=== PATIENT | male | born 1930 | race Caucasian/White ===

== ENCOUNTER 2017-06-18 13:16 | Inpatient (IN) | payer MEDICARE ==
[2017-06-18 14:32] LABS: #Eosinphils 0.1 thou/uL (0.0-0.7); #Lymphocytes 2.6 thou/uL (1.20-3.40); #Monocytes 1.4 thou/uL (0.11-0.59); #Neutrophils 7.4 thou/uL (1.40-6.50); %Basophils 0.2 % (0.0-1.0); %Eosinophils 0.6 % (0.0-10.0); %Lymphocytes 22.6 % (21.0-51.0); %Monocytes 11.9 % (0.0-10.0); %Neutrophils 64.7 % (42.0-75.0); Mean Corpuscular HGB CONC 32.5 g/dL (32.0-36.0); Mean Corpuscular Volume 95.2 fl (80.0-94.0); Mean Platelet Volume 6.1 fL (7.4-10.4); Platelet Count 205 thou/uL (130-400); RBC Distribution Width 12.7 % (11.5-14.5); Red Blood Cell (RBC) Count 3.56 mill/uL (4.70-6.10); White Blood Cell (WBC) Count 11.5 thou/uL (4.8-10.8)
[2017-06-18 14:54] LABS: ALT (SGPT) 8 U/L (8-55); AST (SGOT) 12 U/L (5-34); Albumin 3.9 g/dL (3.4-4.8); Alkaline Phosphatase 113 U/L (40-150); Anion Gap 15 mmol/L (10-20); BUN (Urea Nitrogen) 18 mg/dL (8.4-25.7); Bilirubin, Total 0.9 mg/dL (0.2-1.2); CRP (Inflammatory) 3.68 mg/dL (= or < 0.5); Calc. Creatinine Clearance 0 mL/min (70-130); Calcium 9.6 mg/dL (7.8-10.44); Carbon Dioxide 22 mmol/L (23-31); Chloride 102 mmol/L (98-107); Estimated GFR-MDRD 85; Globulin 3.2 g/dL (2.4-3.5); Glucose 96 mg/dL (83-110); Potassium 4.7 mmol/L (3.5-5.1); Protein, Total 7.1 g/dL (5.8-8.1); Sodium 134 mmol/L (136-145)
[2017-06-18 15:13] LABS: INR-International Normal Ratio 1.5; PTT 47.3 SEC (22.9-36.1); Prothrombin Time 18.1 SEC (12.0-14.7)
--- NOTE | 2017-06-18 15:50 | RAD ---
THREE VIEWS RIGHT FOOT: HISTORY: Right foot infection. FINDINGS: AP, lateral, and oblique views of the right foot are obtained. Three views of the right foot demonstrate marked vascular calcifications. No evidence of acute right foot fractures, subluxations, or bony lesions seen. IMPRESSION: Normal three views right foot. POS: BRIAN
[2017-06-18] MEDS ORDERED: Acetaminophen 325 MG TAB PO PRN (17:52)
[2017-06-18] MEDS ORDERED: HYDROcodone/Acetaminophen 5/325 mg Tablet PO PRN (17:52)
[2017-06-18] MEDS ORDERED: Ondansetron HCl/PF 4 MG/2 ML Vial IVP PRN (17:52)
--- NOTE | 2017-06-18 17:52 | PDOC.EVN ---
Event Note - Event Note Event Note: [id number] h&p dictated 1. Rt ischemic foot 2. rt foot cellulitis 3. htn 4. h/o cva 5. h/o afib plan: see orders
[2017-06-18] MEDS ORDERED: cloNIDine 0.1 MG TAB PO PRN (17:56)
[2017-06-18] MEDS ORDERED: Sodium Chloride 0.9% 1,000 ML IV SCH (18:00)
--- NOTE | 2017-06-18 18:52 | CT ---
CONTRAST ENHANCED CTA IMAGES ABDOMEN AND PELVIS AND BILATERAL RUNOFF 06/18/17 HISTORY: Patient with area of tingling and worsening wound right foot. Contrast enhanced CTA images of abdomen, pelvis and runoff was performed and was further evaluated us ing 2D and 3D reconstructed images on an independent 3D workstation. Images demonstrate a small right sided pleural effusion. Some areas of scarring seen in both lung bas es. No evidence of free intraperitoneal air is seen. The liver and spleen are unremarkable. The pancreas is unremarkable. Some areas of hyperdensity seen in the gallbladder compatible with numerous small ga llstones. No evidence of pericholecystic fluid seen. The adrenal glands are unremarkable. Both kidney s demonstrate cortical cysts. Marked atherosclerotic calcifications seen of the abdominal aorta. Bilateral renal artery calcificati ons seen with area of significant caliber reduction in the origin of the right renal artery. This is concerning for severe right renal artery stenosis. There is mild aneurysmal dilatation of the infrarenal abdominal aorta. Diameter maximally measuring u p to 3.0 cm. There appears to be two separate areas of abdominal and aortic aneurysmal dilatation. On e in the proximal inferior renal abdominal aorta and one more distally just above the bifurcation. RIGHT LOWER EXTREMITY: Atherosclerotic plaque seen in the right common iliac artery and right external iliac artery resultin g in approximately 30-60% areas of right common and external iliac artery stenosis. The right common femoral artery is patent. The right superficial femoral artery has extensive areas of plaque along its course resulting in high grade stenosis at the level of the right adductor canal with approximately 70-80% stenosis in this a leo. 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 Diameter measuring up to 8 mm . Extensive atherosclerotic plaque seen in the right anterior tibial artery, right posterior tibial art cristo and right peroneal arteries. Flow appears to be seen in the right foot and the distal right anter ior tibial as well as the right posterior tibial arteries. LEFT LOWER EXTREMITY: Some atherosclerotic plaque seen in the left common iliac artery with plaque extending, but are calci fied, into the left external iliac artery. The left external iliac artery plaque results in approxima tely 30-40% areas of stenosis along the course of the left external iliac. The left common femoral ar ramila contains some plaques but without evidence of significant high grade stenosis. There is extensive atherosclerotic plaque along the entire course of the left superficial femoral art cristo. There appears to be areas of complete occlusion of the left superficial femoral artery with dina nstitution of flow distally via profunda collaterals. Flow is seen in the left popliteal artery. Flow also seen in the left anterior tibial, posterior tibial, and left peroneal arteries, although there is some diffuse calcification seen. IMPRESSION: 1. 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 2. Left superficial femoral artery occlusion with reconstitution. 3. Right renal artery stenosis. 4. 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 POS: BRIAN
--- NOTE | 2017-06-18 19:42 | CON ---
DATE OF CONSULTATION: 06/18/2017 HISTORY OF PRESENT ILLNESS: This is an 87-year-old gentleman referred for ischemic right foot. Acco rding to the patient's and the patient, both of which are rather difficult historians. The jayden ent had what was felt to be an ingrown toenail at home about a month ago and the trimmed his carmen l; however, it progressed to infection and seen by Dr. Lua, who ordered a DLE. This showed multile abiel vascular disease and he was referred here. He was seen in the office today where he had rather a dvanced ischemia of his right foot and brought to the hospital for admission and evaluation. PAST MEDICAL HISTORY: Includes hypertension, chronic atrial fibrillation. 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 SOCIAL HISTORY: The patient smoked a pack of cigarettes a day until 2002 when he stopped. He also d rank a beer on a daily basis; however, has not anything to drink since 02/2017. The patient was hospitalized in 02/2017 for severe anemia at [facility]. His Eliquis was held for about 1 week at that time and then restarted. The patient had upper and lower endoscopy, but the gold s not think anything was found as an etiology. He was started on iron supplement. He then was seen by Dr. Lua at the end of March with repeat laboratory values showing a hemoglobin that had improv ed to about 9-10. I do not know if he was transfused during that hospital stay. MEDICATIONS: Include losartan 100 mg daily, iron once a day, Coreg 6.25 b.i.d., and eyedrops. ALLERGIES: None known. REVIEW OF SYSTEMS: The patient leads a very inactive lifestyle. He evidently had a stroke about 3 o r 4 years ago and has had some balance problems and rarely walks outside of the house. Since his toe has been bothering him, he has developed further weakness and has some difficulty getting out of a c hair. He admits to nocturia x2-3. SOCIAL HISTORY: He is a retired air conditioning repairman. He is and accompanied by his wi fe. PHYSICAL EXAMINATION: GENERAL: Elderly gentleman in no distress. NECK: No carotid bruits. LUNGS: Clear to auscultation. CARDIAC: Irregular rhythm. No murmurs, distant heart sounds. ABDOMEN: Soft, nontender, healed skin incision from the umbilical hernia repair. No aneurysm. EXTREMITIES: He has palpable femoral pulses bilaterally. No distal pulses. He has a Doppler signal in both feet that is monophasic to biphasic. He has extensive ischemic changes with erythema and so me purple discoloration most of the dorsum of his right foot. He has some small areas of eschar on t he dorsum of three toes; however, the tips of his toes appear pink. He has no peripheral edema. He is tender to palpation of his right foot. At this time, I have reviewed a foot x-rays showing heavily calcified tibial vessels. His CT angiogr am shows extensive calcification of the aorta in all segments distally with probable occlusion of the right SFA in several areas. His right external iliac artery may have some significant stenosis as w ell. Tibial vessels are diffusely diseased and it is difficult to quantitate the severity based on t he CTA. Plan at this time is for angiography tomorrow morning and possibly a fem-pop bypass, fawad gamble on the findings. I have also discussed the possibility of stenting with the family. I think ther e is a significant likelihood that he will lose his lower leg. However, we will see if there is anyt dora we can do to improve the circulatory status.
[2017-06-18] MEDS ORDERED: Heparin 5,000 UNITS/ML VIAL SC SCH (21:00)
[2017-06-18] MEDS: Clindamycin/D5W 600 MG in Premix Bag 1 BAG IVPB SCH (21:21)
[2017-06-18] MEDS: Cefepime 2 GM, Syringe 2.5 ML in Sodium Chloride 0.9% 10 ML SLOW IVP SCH (22:04)
[2017-06-18] MEDS: hydrALAZINE 20 MG/ML VIAL SLOW IVP PRN (22:05)
[2017-06-18] MEDS: Lactated Ringer's 1,000 ML IV SCH (22:05)
[2017-06-19] MEDS: hydrALAZINE 20 MG/ML VIAL SLOW IVP PRN (03:42)
[2017-06-19 05:12] LABS: #Eosinphils 0.1 thou/uL (0.0-0.7); #Lymphocytes 1.7 thou/uL (1.20-3.40); #Neutrophils 5.1 thou/uL (1.40-6.50); %Basophils 0.3 % (0.0-1.0); %Eosinophils 0.9 % (0.0-10.0); %Lymphocytes 22.1 % (21.0-51.0); %Monocytes 12.2 % (0.0-10.0); %Neutrophils 64.6 % (42.0-75.0); Hemoglobin 10.1 g/dL (14.0-18.0); Mean Corpuscular Volume 93.9 fl (80.0-94.0); Mean Platelet Volume 5.8 fL (7.4-10.4); Platelet Count 199 thou/uL (130-400); RBC Distribution Width 12.7 % (11.5-14.5); Red Blood Cell (RBC) Count 3.26 mill/uL (4.70-6.10); White Blood Cell (WBC) Count 7.9 thou/uL (4.8-10.8)
[2017-06-19 05:26] LABS: Anion Gap 13 mmol/L (10-20); BUN (Urea Nitrogen) 18 mg/dL (8.4-25.7); Calc. Creatinine Clearance 85 mL/min (70-130); Calcium 9.1 mg/dL (7.8-10.44); Carbon Dioxide 22 mmol/L (23-31); Chloride 103 mmol/L (98-107); Estimated GFR-MDRD Greater than 90; Glucose 97 mg/dL (83-110); Potassium 4.1 mmol/L (3.5-5.1); Sodium 134 mmol/L (136-145)
[2017-06-19] MEDS: Carvedilol 6.25 MG TAB PO SCH ×2 (06:26→16:04)
[2017-06-19] MEDS: Clindamycin/D5W 600 MG in Premix Bag 1 BAG IVPB SCH ×3 (06:26→22:08)
[2017-06-19] MEDS ORDERED: Ondansetron HCl/PF 4 MG/2 ML Vial ONE (06:53)
[2017-06-19] MEDS ORDERED: PHENYLEPHRINE-NS 100 MCG/ML 10 ML SYRINGE ONE (06:53)
[2017-06-19] MEDS ORDERED: PROPOFOL 200 MG/20 ML VIAL ONE (06:53)
[2017-06-19] MEDS ORDERED: Lidocaine 1% PF 5 ML VIAL ONE (06:53)
[2017-06-19] MEDS ORDERED: Heparin 10,000 UNITS/ 10 ML VIAL ONE (06:53)
[2017-06-19] MEDS ORDERED: Dexamethasone 20 MG/5 ML VIAL ONE (06:53)
[2017-06-19] MEDS ORDERED: Lidocaine 1% (PF) 30 ML VIAL ONE (08:02)
--- NOTE | 2017-06-19 08:16 | HP ---
DATE OF ADMISSION: 06/18/2017 CHIEF COMPLAINT: Right foot discoloration. HISTORY OF PRESENT ILLNESS: The patient is an 87-year-old male with started having right foot discoloration approximately 2-3 weeks back since then it slowly got worse. He started noticing more blackish discoloration of the right second and third toe for the last 2-3 days. The patient was complaining of pain. Pain is numbness and tingling kind of pain, intermittent. No aggravating or alleviating factors. Symptoms persisted, so he went to the PCP, who recommended for the patient would seen by Dr. Wilson and the patient was referred from Dr. Wilson's office to the hospital. The patient denies any fever , denies any chills, denies nausea, denies any vomiting, denies any chest pain, denies any trouble breathing, denies any dizziness, denies any trauma Complains of some drainage from the right foot also. PAST MEDICAL HISTORY: Hypertension, atrial fibrillation, CVA. PAST SURGICAL HISTORY: Umbilical hernia repair, right knee arthroscopy. SOCIAL HISTORY: Denies smoking, denies alcohol, denies any drugs. FAMILY HISTORY: Denies any heart problems. MEDICATIONS: Reviewed. ALLERGIES: Reviewed. REVIEW OF SYSTEMS: Constitutional: Denies any fever, denies any chills. Eyes : Denies vision problems. Ears: Denies hearing loss. Neck: Denies any neck pain. Cardiovascular system: Denies any chest pains or palpitations. Respiratory system: Denies any cough, denies sputum production. Gastrointestinal: No nausea, vomiting. Musculoskeletal: Right foot positive for erythema. Right second and third toe ulcer open. Skin breakdown present. Positive for ulcer. Positive for drainage. Psychiatric: Denies anxiety. Cranial nerve system: Denies syncope. Denies lightheadedness. All other review of systems are reviewed and are negative. PHYSICAL EXAMINATION: CONSTITUTIONAL/VITAL SIGNS: At the time of H&P performed, blood pressure is 180 /80, pulse ox 97%, respiratory 18. GENERAL: The patient appears comfortable. HEENT: Anterior nares patent. Teeth intact. Tongue is moist. NECK: Supple, no JVD. CARDIAC: S1, S2 present. Regular rate and rhythm. No murmurs, no rubs, no gallops. RESPIRATORY SYSTEM: No wheezing, no rhonchi. Breath sounds bilaterally. GASTROINTESTINAL: Abdomen soft, nontender, no guarding, no rebound, no masses felt. MUSCULOSKELETAL: Positive for right foot erythema present, right second and third toe black discoloration, black eschar present, black and skin breakdown present. Positive for drainage. Right great toe positive for blister present. PSYCHIATRIC: Mood appropriate at this time. CRANIAL NERVES SYSTEM: Cranial nerves intact. Follows commands. Strength intact. Sensory intact. LABORATORY DATA: At the time of H&P performed, PT 18.1, INR 1.5. White count 11.5, hemoglobin 11, platelet count is 205. ASSESSMENT AND PLAN: The patient is an 87-year-old male, 1. Right foot ulcer and cellulitis plus rule out ischemic limb. The patient did have Doppler pedal pulse in the ER. The patient already had aortogram with bilateral runoff in the ER. We are waiting for the official report. ED physician did speak to Dr. Wilson and recommended no anticoagulation at this time. The patient took Eliquis this morning. I will go ahead and monitor patient closely. We go head and start the patient on IV antibiotics and we will wait for Dr. Wilson's input. 2. Pain, p.r.n. pain medication. 3. Hypertension. Monitor blood pressure. Continue BP meds. 4. History of atrial fibrillation, monitor heart rate. Place the patient on telemetry. 5. History of cerebrovascular accident, stable at this time. The case was discussed in detail with the patient and patient's also. The patient is FULL CODE. MTDD
[2017-06-19] MEDS ORDERED: Enoxaparin Sodium 40 MG/0.4 ML SYRINGE SC SCH (09:00)
[2017-06-19] MEDS ORDERED: Heparin 10,000 UNITS/1 ML VIAL ONE (09:51)
[2017-06-19] MEDS: Lactated Ringer's 1,000 ML IV SCH ×3 (10:10→16:02)
[2017-06-19] MEDS: Losartan 25 MG TAB PO SCH (10:10)
[2017-06-19] MEDS: Cefepime 2 GM, Syringe 2.5 ML in Sodium Chloride 0.9% 10 ML SLOW IVP SCH ×2 (10:10→21:08)
[2017-06-19] MEDS ORDERED: Fentanyl 250 MCG/5 ML VIAL ONE (10:14)
--- NOTE | 2017-06-19 10:57 | OP ---
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 PROCEDURE: Abdominal aortography and right lower extremity runoff with stenting of the right externa l iliac artery using an 8 x 40 self-expanding stent posted with a 7 mm balloon. PROCEDURE IN DETAIL: After prepping and draping, ultrasound guided puncture of the left common femor al artery was carried out. Wire was then passed and a 5 Georg[place] dilator and sheath inserted. A Contr a catheter was advanced over the wire following which angiography was obtained of the aorta in the il iofemoral vessels. Contra catheter was then used to direct the wire over the bifurcation; however, i t was unable to negotiate the proximal external iliac artery on the right, despite multiple wires and catheter position in the common iliac artery. Runoff the right leg was then obtained. Following th is, the right common femoral artery was punctured after lidocaine anesthesia in this region and a wir e was then manipulated through the external iliac artery into the aorta. Following this, an 8 x 40, Innova stent was deployed and ballooned x2 with a 7 x 40 [place] balloon. Completion angiography emily wed good result. FINDINGS: The patient had heavily calcified aorta with some mild aneurysmal changes distally. Both iliac systems were heavily calcified and the right external iliac artery had about an 80% stenosis at its origin. The common femoral artery was heavily calcified with moderate disease and then there wa s some stenosis at the takeoff of the right profunda femoral artery. The right superficial femoral a rtery was severely and diffusely diseased with multiple subtotal lesions in its mid and distal extent . Popliteal artery was patent and gave off an anterior tibial and tibioperoneal trunk; however, thes e vessels only visualized for a short distance and then no visualization was seen distally. The exte rnal iliac artery stenosis was reduced to 0% stenosis at the completion of the procedure with mild to moderate lesions distally in the external iliac artery. CONTRAST: 63 mL. FLUOROSCOPY: 22.1 minutes.
[2017-06-19] MEDS ORDERED: Heparin 5,000 UNITS/ML VIAL ONE (11:09)
[2017-06-19] MEDS ORDERED: Protamine Sulfate 50 MG/5 ML VIAL ONE ×2 (11:09→13:04)
[2017-06-19] MEDS ORDERED: Sodium Bicarbonate 2.5 MEQ/5 ML VIAL ONE (12:51)
[2017-06-19] MEDS ORDERED: Sodium Bicarb 50 MEQ/50 ML Abboject 8.4% SYRINGE ONE (12:53)
[2017-06-19] MEDS ORDERED: Promethazine HCl 25 MG/ML VIAL SLOW IVP PRN (13:10)
[2017-06-19] MEDS ORDERED: Promethazine HCl 25 MG/ML VIAL IM PRN (13:10)
[2017-06-19] MEDS ORDERED: Morphine Sulfate 2 MG/ML SYRINGE SLOW IVP PRN (13:10)
[2017-06-19] MEDS ORDERED: Ondansetron HCl/PF 4 MG/2 ML Vial IVP PRN (13:10)
--- NOTE | 2017-06-19 14:03 | PDOC.PN ---
- Subjective Encounter Start Date: 06/19/17 Encounter Start Time: 18:00 Subjective: is post op fempop right -: not in distress - Objective MAR Reviewed: Yes Vital Signs & Weight: Vital Signs (12 hours) Temp Pulse Resp BP BP Pulse Ox 06/19/17 07:20 98.4 F 67 18 176/72 H 96 06/19/17 07:15 98.4 F 67 18 96 06/19/17 06:26 192/79 H 06/19/17 04:15 173/85 H 06/19/17 03:42 72 204/85 H 06/19/17 03:30 98.2 F 72 16 203/93 H 97 Weight Weight 182 lb 9 oz I&O: 06/18/17 06/19/17 06/20/17 06:59 06:59 06:59 Intake Total 800 Output Total 475 Balance 325 Result Diagrams: 06/20/17 03:56 06/20/17 03:56 Additional Labs: Accuchecks 06/19/17 13:36 POC Glucose 105 Phys Exam - Physical Examination HEENT: PERRLA, moist MMs Neck: no JVD, supple Respiratory: no wheezing, no rales Cardiovascular: RRR, no significant murmur Gastrointestinal: soft, non-tender, positive bowel sounds right 2, 3 toes has ischemia/gangrene, ulcers+ Neurological: non-focal, moves all 4 limbs Psychiatric: normal affect, A&O x 3 Dx/Plan (1) Ischemic ulcer of right foot Code(s): L97.519 - NON-PRS CHRONIC ULCER OTH PRT RIGHT FOOT W UNSP SEVERITY Status: Acute (2) PVD (peripheral vascular disease) Code(s): I73.9 - PERIPHERAL VASCULAR DISEASE, UNSPECIFIED Status: Acute Comment: s/p stent to right ext iliac art and fem pop 06/19/2017 (3) HTN (hypertension) Code(s): I10 - ESSENTIAL (PRIMARY) HYPERTENSION Status: Chronic Qualifiers: Hypertension type: essential hypertension Qualified Code(s): I10 - Essential (primary) hypertension (4) Renal artery stenosis Code(s): I70.1 - ATHEROSCLEROSIS OF RENAL ARTERY Status: Acute (5) Chronic anemia Code(s): D64.9 - ANEMIA, UNSPECIFIED Status: Chronic (6) CAD (coronary artery disease) Code(s): I25.10 - ATHSCL HEART DISEASE OF [place] CORONARY ARTERY W/O ANG PCTRS Status: Suspected Qualifiers: Coronary Disease-Associated Artery/Lesion type: [place] artery [place] vs. transplanted heart: [place] heart Associated angina: without angina Qualified Code(s): I25.10 - Atherosclerotic heart disease of [place] coronary artery without angina pectoris - Plan had aortogram with run offs with stent placed to right ext iliac art -: and fempop on right, is on asp, coreg, cozaar -: will add plavix if ok with CTS -: cefepime and clinda, may dc if ok with CTS -: will f/u * . Review of Systems - Medications/Allergies Allergies/Adverse Reactions: Allergies Allergy/AdvReac Type Severity Reaction Status Date / Time No Known Drug Allergies Allergy Verified 06/18/17 23:59 Medications: Current Medications Acetaminophen (Tylenol) 650 mg PO Q4H PRN PRN Reason: Headache/Fever or Pain Hydrocodone Bitart/Acetaminophen ([place] 5/325) 1 tab PO Q4H PRN PRN Reason: Moderate Pain (4-6) Aspirin (Aspirin Chewable) 81 mg PO DAILY COUNTS INCLUDE 234 BEDS AT THE [facility] Last Admin: 06/19/17 10:10 Dose: Not Given Carvedilol (Coreg) 6.25 mg PO BID-WM COUNTS INCLUDE 234 BEDS AT THE [facility] Last Admin: 06/19/17 06:26 Dose: 6.25 mg Clonidine (Catapres) 0.1 mg PO Q6H PRN PRN Reason: SBP GREATER THAN 160 Fentanyl (Pacu-Sublimaze) 50 mcg SLOW IVP Q10MIN PRN PRN Reason: Moderate to Severe Pain (6-10) Stop: 06/19/17 16:10 Hydralazine HCl (Apresoline) 10 mg SLOW IVP Q4H PRN PRN Reason: SBP Greater Than 170 Last Admin: 06/19/17 03:42 Dose: 10 mg Cefepime HCl 2 gm/ Syringe 2.5 (ml/ Sodium Chloride) 12.5 mls @ 150 mls/hr SLOW IVP Q12HR COUNTS INCLUDE 234 BEDS AT THE [facility] Last Admin: 06/19/17 10:10 Dose: Not Given Clindamycin Phosphate/Dextrose (600 mg/ Device) 50 mls @ 100 mls/hr IVPB Q8HR COUNTS INCLUDE 234 BEDS AT THE [facility] Last Admin: 06/19/17 06:26 Dose: 50 mls Lactated Ringer's (Lactated Ringer's) 1,000 mls @ 100 mls/hr IV .Q10H COUNTS INCLUDE 234 BEDS AT THE [facility] Last Admin: 06/19/17 10:10 Dose: Not Given Losartan Potassium (Cozaar) 100 mg PO DAILY COUNTS INCLUDE 234 BEDS AT THE [facility] Last Admin: 06/19/17 10:10 Dose: Not Given Morphine Sulfate (Pacu-Morphine Sulfate) 2 mg SLOW IVP Q10MIN PRN PRN Reason: Moderate to Severe Pain (6-10) Stop: 06/19/17 16:10 Ondansetron HCl (Zofran) 4 mg IVP Q6H PRN PRN Reason: Nausea/Vomiting Ondansetron HCl (Pacu-Zofran) 4 mg IVP ONE PRN PRN Reason: Nausea/Vomiting Stop: 06/19/17 16:10 Promethazine HCl (Pacu-Phenergan) 6.25 mg SLOW IVP ONE PRN PRN Reason: Nausea/Vomiting Stop: 06/19/17 16:10 Promethazine HCl (Pacu-Phenergan) 6.25 mg IM ONE PRN PRN Reason: Nausea/Vomiting Stop: 06/19/17 16:10 Sodium Chloride (Flush - Normal Saline) 10 ml IVF Q12HR COUNTS INCLUDE 234 BEDS AT THE [facility] Last Admin: 06/19/17 10:10 Dose: Not Given Sodium Chloride (Flush - Normal Saline) 10 ml IVF PRN PRN PRN Reason: Saline Flush
--- NOTE | 2017-06-19 14:17 | PQF ---
CLINICAL DOCUMENTATION IMPROVEMENT CLARIFICATION FORM: ICD-10 Updated PLEASE DO AN ADDENDUM TO THE PROGRESS NOTE WITH ANY DOCUMENTATION UPDATES OR ADDITIONS AND CARRY THROUGH TO DC SUMMARY. THANK YOU. DATE: 06/19/17 ATTN: Dr. Wilson Please exercise your independent, professional judgment in responding to the clarification form. Clinical indicators are provided on the bottom of this form for your review Please check appropriate box(s): [ ] Drug-eluting stent. [ ] Non-drug eluting stent (e.g., bare metal, drug-coated) [ ] Other diagnosis [ ] Unable to determine For continuity of documentation, please document condition throughout progress notes and discharge summary. Thank You. CLINICAL INDICATORS - SIGNS / SYMPTOMS / LABS OP REPORT: 06/19 ABDOMINAL AORTOGRAPHY & R LE RUNOFF WITH STENTING OF THE R EXTERNAL ILIAC ARTERY USING AN 8 X40 SELF- EXPANDING STENT POSTED WITH A 7mm BALLOON. ...FOLLOWING THIS, AN 8 X 40, INNOVA STENT WAS DEPLOYED... RISKS: OP REPORT: 06/19 SEVERE PERIPHERAL ARTERY DISEASE WITH GANGRENE OF THE RIGHT FOOT. TREATMENT: OP REPORT: 06/19 ABDOMINAL AORTOGRAPHY & R LE RUNOFF WITH STENTING OF THE R EXTERNAL ILIAC ARTERY USING AN 8 X40 SELF- EXPANDING STENT POSTED WITH A 7mm BALLOON. (AN 8 X 40 INNOVA STENT WAS DEPLOYED) Thank you, Codie (This form is maintained as a part of the permanent medical record) 2015 [employer], [place]. All Rights Reserved Codie Arriaza RN, BSN [email or web address] Office: [phone] [facility]OSPITALIrsael
[2017-06-19] MEDS ORDERED: Fentanyl 100 MCG/2 ML VIAL ONE (15:04)
[2017-06-19] MEDS ORDERED: Iopamidol 370 76% 50 ML VIAL FS ONE (15:51)
[2017-06-19 16:05] LABS: #Lymphocytes 1.3 thou/uL (1.20-3.40); #Neutrophils 9.8 thou/uL (1.40-6.50); %Basophils 0.3 % (0.0-1.0); %Eosinophils 0.3 % (0.0-10.0); %Lymphocytes 10.7 % (21.0-51.0); %Monocytes 8.1 % (0.0-10.0); %Neutrophils 80.6 % (42.0-75.0); Hemoglobin 10.6 g/dL (14.0-18.0); Mean Corpuscular HGB CONC 32.5 g/dL (32.0-36.0); Mean Corpuscular Hemoglobin 31.1 pg (27.0-31.0); Mean Corpuscular Volume 95.7 fl (80.0-94.0); Mean Platelet Volume 6.2 fL (7.4-10.4); Platelet Count 184 thou/uL (130-400); RBC Distribution Width 12.8 % (11.5-14.5); Red Blood Cell (RBC) Count 3.41 mill/uL (4.70-6.10); White Blood Cell (WBC) Count 12.2 thou/uL (4.8-10.8)
[2017-06-19 16:23] LABS: Anion Gap 13 mmol/L (10-20); BUN (Urea Nitrogen) 16 mg/dL (8.4-25.7); Calc. Creatinine Clearance 87 mL/min (70-130); Calcium 8.4 mg/dL (7.8-10.44); Carbon Dioxide 22 mmol/L (23-31); Chloride 105 mmol/L (98-107); Estimated GFR-MDRD Greater than 90; Glucose 102 mg/dL (83-110); Potassium 4.1 mmol/L (3.5-5.1); Sodium 136 mmol/L (136-145)
--- NOTE | 2017-06-19 16:44 | OP ---
PREOPERATIVE DIAGNOSIS: Ischemic right foot. POSTOPERATIVE DIAGNOSIS: Ischemic right foot. PROCEDURE: Right femoral to popliteal artery bypass with nonreversed saphenous vein. SURGEON: Hank Wilson M.D. ANESTHESIA: General. ESTIMATED BLOOD LOSS: 300 mL. PROCEDURE IN DETAIL: After adequate anesthesia had been obtained, the patient was prepped and draped . Incision was made in the right groin across an area where a femoral artery catheter had been place d. After the femoral artery was identified, a 6-0 Prolene suture was used to repair the puncture sit e as the catheter was removed. Following this, saphenous vein was harvested from the upper third of the calf, all the way up to the groin. EVH was considered; however, the vessel was very superficial with multiple small tributaries. For this reason, several incisions were used to harvest the vein. Following this, it was injected with heparin saline and branches tied. The popliteal artery as well as tibioperoneal and anterior tibial trunks were isolated in the upper calf through a medial incision . After heparinization, clamps were applied to the heavily calcified femoral artery in the SFA and p rofunda both of which were heavily diseased. The distal external iliac artery was clamped and then a n arteriotomy performed, and distally and the common femoral artery and the saphenous vein anastomose d in an end-to-side fashion. Clamps were then removed and repair sutures were utilized on the vein g raft. There was some bleeding from the proximal clamp site and this was controlled with Surgicel and pressure. There was a good pulse in the graft and was then brought through its previous tunnel exce pt just above the knee. It was transferred posterior to the knee where the distal anastomosis was co mpleted to the calcified, but patent popliteal artery. Following completion of this, there was a goo d pulse in the tibioperoneal trunk. The wounds were then closed in layers and the patient is to be t aken to the ICU in guarded condition.
[2017-06-19] MEDS ORDERED: Morphine 4 MG/ML VIAL SLOW IVP PRN (17:12)
[2017-06-19] MEDS: Morphine 4 MG/ML VIAL SLOW IVP PRN ×2 (17:15→23:51)
[2017-06-20] MEDS: Lactated Ringer's 1,000 ML IV SCH (03:59)
[2017-06-20 04:42] LABS: Anion Gap 12 mmol/L (10-20); BUN (Urea Nitrogen) 22 mg/dL (8.4-25.7); Calc. Creatinine Clearance 71 mL/min (70-130); Calcium 8.2 mg/dL (7.8-10.44); Carbon Dioxide 23 mmol/L (23-31); Chloride 107 mmol/L (98-107); Estimated GFR-MDRD 83; Glucose 102 mg/dL (83-110); Potassium 4.5 mmol/L (3.5-5.1); Sodium 137 mmol/L (136-145)
[2017-06-20 04:50] LABS: #Lymphocytes 1.4 thou/uL (1.20-3.40); #Monocytes 1.4 thou/uL (0.11-0.59); #Neutrophils 9.4 thou/uL (1.40-6.50); %Basophils 0.1 % (0.0-1.0); %Eosinophils 0.1 % (0.0-10.0); %Lymphocytes 11.5 % (21.0-51.0); %Monocytes 11.4 % (0.0-10.0); %Neutrophils 76.9 % (42.0-75.0); Hemoglobin 9.6 g/dL (14.0-18.0); Mean Corpuscular HGB CONC 34.2 g/dL (32.0-36.0); Mean Corpuscular Volume 93.7 fl (80.0-94.0); Mean Platelet Volume 6.2 fL (7.4-10.4); Platelet Count 179 thou/uL (130-400); RBC Distribution Width 12.8 % (11.5-14.5); Red Blood Cell (RBC) Count 2.99 mill/uL (4.70-6.10); White Blood Cell (WBC) Count 12.3 thou/uL (4.8-10.8)
[2017-06-20] MEDS: Clindamycin/D5W 600 MG in Premix Bag 1 BAG IVPB SCH (05:22)
[2017-06-20] MEDS: Losartan 25 MG TAB PO SCH (08:29)
[2017-06-20] MEDS: Carvedilol 6.25 MG TAB PO SCH ×2 (08:29→17:18)
--- NOTE | 2017-06-20 15:06 | PDOC.PN ---
- Subjective Encounter Start Date: 06/20/17 Encounter Start Time: 08:30 Subjective: awake, at bedside -: no pain, is able to move LE - Objective MAR Reviewed: Yes Vital Signs & Weight: Vital Signs (12 hours) Temp BP 06/20/17 12:00 97.9 F 06/20/17 08:29 133/51 L 06/20/17 08:00 99.1 F 06/20/17 04:00 98.4 F Weight Weight 182 lb 9 oz Most Recent Monitor Data Heart Rate from ECG 57 NIBP 122/43 NIBP BP-Mean 56 Respiration from ECG 14 SpO2 100 I&O: 06/19/17 06/20/17 06/21/17 06:59 06:59 06:59 Intake Total 800 1899 300 Output Total 475 475 165 Balance 325 1424 135 Result Diagrams: 06/20/17 03:56 06/20/17 03:56 Phys Exam - Physical Examination HEENT: PERRLA, moist MMs Neck: no JVD, supple Respiratory: no wheezing, no rales Cardiovascular: RRR, no significant murmur Gastrointestinal: soft, non-tender, positive bowel sounds has gangrene of right 3,4 toes, pulses are dopplerable Neurological: non-focal, moves all 4 limbs Psychiatric: A&O x 3 Dx/Plan (1) Ischemic ulcer of right foot Code(s): L97.519 - NON-PRS CHRONIC ULCER OTH PRT RIGHT FOOT W UNSP SEVERITY Status: Acute (2) PVD (peripheral vascular disease) Code(s): I73.9 - PERIPHERAL VASCULAR DISEASE, UNSPECIFIED Status: Acute Comment: s/p stent to right ext iliac art and fem pop 06/19/2017 (3) HTN (hypertension) Code(s): I10 - ESSENTIAL (PRIMARY) HYPERTENSION Status: Chronic Qualifiers: Hypertension type: essential hypertension Qualified Code(s): I10 - Essential (primary) hypertension (4) Renal artery stenosis Code(s): I70.1 - ATHEROSCLEROSIS OF RENAL ARTERY Status: Acute (5) Chronic anemia Code(s): D64.9 - ANEMIA, UNSPECIFIED Status: Chronic (6) CAD (coronary artery disease) Code(s): I25.10 - ATHSCL HEART DISEASE OF [place] CORONARY ARTERY W/O ANG PCTRS Status: Suspected Qualifiers: Coronary Disease-Associated Artery/Lesion type: [place] artery [place] vs. transplanted heart: [place] heart Associated angina: without angina Qualified Code(s): I25.10 - Atherosclerotic heart disease of [place] coronary artery without angina pectoris - Plan is on asp, coreg, cozaar -: on cefepime and clindamycin -: may antibiotics if ok with CTS -: PT to mobilize as tolerated -: may tx to tele * . Review of Systems - Medications/Allergies Allergies/Adverse Reactions: Allergies Allergy/AdvReac Type Severity Reaction Status Date / Time No Known Drug Allergies Allergy Verified 06/18/17 23:59 Medications: Current Medications Acetaminophen (Tylenol) 650 mg PO Q4H PRN PRN Reason: Headache/Fever or Pain Hydrocodone Bitart/Acetaminophen ([place] 5/325) 1 tab PO Q4H PRN PRN Reason: Moderate Pain (4-6) Aspirin (Aspirin Chewable) 81 mg PO DAILY ON [facility] OF [facility] Last Admin: 06/20/17 08:29 Dose: 81 mg Carvedilol (Coreg) 6.25 mg PO BID-[facility] Last Admin: 06/20/17 08:29 Dose: 6.25 mg Clonidine (Catapres) 0.1 mg PO Q6H PRN PRN Reason: SBP GREATER THAN 160 Hydralazine HCl (Apresoline) 10 mg SLOW IVP Q4H PRN PRN Reason: SBP Greater Than 170 Last Admin: 06/19/17 03:42 Dose: 10 mg Losartan Potassium (Cozaar) 100 mg PO DAILY ON LICENSE OF [facility] Last Admin: 06/20/17 08:29 Dose: 100 mg Morphine Sulfate (Morphine) 2 mg SLOW IVP Q6H PRN PRN Reason: Mild Pain (1-3) Morphine Sulfate (Morphine) 4 mg SLOW IVP Q6H PRN PRN Reason: Moderate Pain (4-6) Last Admin: 06/19/17 23:51 Dose: 4 mg Ondansetron HCl (Zofran) 4 mg IVP Q6H PRN PRN Reason: Nausea/Vomiting Sodium Chloride (Flush - Normal Saline) 10 ml IVF PRN PRN PRN Reason: Saline Flush
[2017-06-20] MEDS: Cefepime 2 GM, Syringe 2.5 ML in Sodium Chloride 0.9% 10 ML SLOW IVP SCH (17:17)
[2017-06-20 18:06] VITALS: BMI 25.9
[2017-06-21] MEDS: Carvedilol 3.125 MG TAB PO SCH ×2 (08:43→17:05)
[2017-06-21] MEDS: Losartan 25 MG TAB PO SCH (08:44)
[2017-06-21] MEDS: Bisacodyl 5 MG TAB PO PRN (08:45)
--- NOTE | 2017-06-21 11:41 | PDOC.PN ---
- Subjective Encounter Start Date: 06/21/17 Encounter Start Time: 08:30 Subjective: no trouble breathing -: has no pain in right toes/leg -: moves all extr freely - Objective MAR Reviewed: Yes Vital Signs & Weight: Vital Signs (12 hours) Temp Pulse Resp BP Pulse Ox 06/21/17 08:00 98.6 F 68 18 94 L 06/21/17 07:45 98.6 F 68 18 144/68 H 94 L 06/21/17 07:44 98.6 F 06/21/17 03:34 98.4 F 75 18 122/59 L 98 06/21/17 00:02 97.5 F L 74 16 126/61 97 Weight Weight 191 lb 4 oz Most Recent Monitor Data Heart Rate from ECG 46 NIBP 117/37 NIBP BP-Mean 86 Respiration from ECG 17 SpO2 99 I&O: 06/20/17 06/21/17 06/22/17 06:59 06:59 06:59 Intake Total 1899 400 Output Total 475 620 Balance 1424 -220 Result Diagrams: 06/20/17 03:56 06/20/17 03:56 Phys Exam - Physical Examination HEENT: PERRLA, moist MMs Neck: no JVD, supple Respiratory: no wheezing, no rales Cardiovascular: RRR, no significant murmur Gastrointestinal: soft, non-tender, positive bowel sounds right DP/PT is dopplerable per staff, has gangrene of right 3,4 toes Neurological: non-focal, moves all 4 limbs Psychiatric: A&O x 3 Dx/Plan (1) Ischemic ulcer of right foot Code(s): L97.519 - NON-PRS CHRONIC ULCER OTH PRT RIGHT FOOT W UNSP SEVERITY Status: Acute Comment: with gangrene of right 3,4 toes and edema (2) PVD (peripheral vascular disease) Code(s): I73.9 - PERIPHERAL VASCULAR DISEASE, UNSPECIFIED Status: Acute Comment: s/p stent to right ext iliac art and FEMPOP 06/19/2017 (3) HTN (hypertension) Code(s): I10 - ESSENTIAL (PRIMARY) HYPERTENSION Status: Chronic Qualifiers: Hypertension type: essential hypertension Qualified Code(s): I10 - Essential (primary) hypertension (4) Renal artery stenosis Code(s): I70.1 - ATHEROSCLEROSIS OF RENAL ARTERY Status: Acute (5) Chronic anemia Code(s): D64.9 - ANEMIA, UNSPECIFIED Status: Chronic (6) CAD (coronary artery disease) Code(s): I25.10 - ATHSCL HEART DISEASE OF [place] CORONARY ARTERY W/O ANG PCTRS Status: Suspected Qualifiers: Coronary Disease-Associated Artery/Lesion type: [place] artery [place] vs. transplanted heart: [place] heart Associated angina: without angina Qualified Code(s): I25.10 - Atherosclerotic heart disease of [place] coronary artery without angina pectoris - Plan is on asp, coreg and cozaar -: is off antibiotics, wound care for toes (dry gangrene with edema around) -: reduce coreg dose (pulse drop to 40's) -: PT to mobilize as tolerated -: likely might need rehab * . Review of Systems - Medications/Allergies Allergies/Adverse Reactions: Allergies Allergy/AdvReac Type Severity Reaction Status Date / Time No Known Drug Allergies Allergy Verified 06/18/17 23:59 Medications: Current Medications Acetaminophen (Tylenol) 650 mg PO Q4H PRN PRN Reason: Headache/Fever or Pain Hydrocodone Bitart/Acetaminophen ([place] 5/325) 1 tab PO Q4H PRN PRN Reason: Moderate Pain (4-6) Last Admin: 06/20/17 20:01 Dose: 1 tab Aspirin (Aspirin Chewable) 81 mg PO DAILY [facility] Last Admin: 06/21/17 08:43 Dose: 81 mg Bisacodyl (Dulcolax) 10 mg PO DAILYPRN PRN PRN Reason: Constipation Last Admin: 06/21/17 08:45 Dose: 10 mg Carvedilol (Coreg) 3.125 mg PO BID-[facility] Last Admin: 06/21/17 08:43 Dose: 3.125 mg Clonidine (Catapres) 0.1 mg PO Q6H PRN PRN Reason: SBP GREATER THAN 160 Hydralazine HCl (Apresoline) 10 mg SLOW IVP Q4H PRN PRN Reason: SBP Greater Than 170 Last Admin: 06/19/17 03:42 Dose: 10 mg Losartan Potassium (Cozaar) 100 mg PO DAILY [facility] Last Admin: 06/21/17 08:44 Dose: 100 mg Morphine Sulfate (Morphine) 2 mg SLOW IVP Q6H PRN PRN Reason: Mild Pain (1-3) Morphine Sulfate (Morphine) 4 mg SLOW IVP Q6H PRN PRN Reason: Moderate Pain (4-6) Last Admin: 06/19/17 23:51 Dose: 4 mg Ondansetron HCl (Zofran) 4 mg IVP Q6H PRN PRN Reason: Nausea/Vomiting Sodium Chloride (Flush - Normal Saline) 10 ml IVF PRN PRN PRN Reason: Saline Flush
[2017-06-21] MEDS ORDERED: Tamsulosin HCl 0.4 MG CAP PO SCH (15:15)
[2017-06-22] MEDS: Tamsulosin HCl 0.4 MG CAP PO SCH (10:16)
[2017-06-22] MEDS: Losartan 25 MG TAB PO SCH (10:16)
[2017-06-22] MEDS: Bisacodyl 5 MG TAB PO PRN (10:19)
[2017-06-22] MEDS: Carvedilol 3.125 MG TAB PO SCH (10:21)
--- NOTE | 2017-06-22 11:05 | PDOC.PN ---
- Subjective Encounter Start Date: 06/22/17 Encounter Start Time: 10:00 Subjective: had shower this am, feels better -: has amb in room with PT, still weak -: No palp or feeling dizzy - Objective MAR Reviewed: Yes Vital Signs & Weight: Vital Signs (12 hours) Temp Pulse Resp BP Pulse Ox 06/22/17 07:42 98.3 F 64 20 154/67 H 97 06/22/17 07:40 98.3 F 64 20 94 L 06/22/17 04:00 98.2 F 70 16 134/62 100 06/21/17 23:59 98.4 F 73 20 134/56 L 96 Weight Admit Weight 182 lb 9.6 oz Weight 191 lb 4 oz Most Recent Monitor Data Heart Rate from ECG 46 NIBP 117/37 NIBP BP-Mean 86 Respiration from ECG 17 SpO2 99 I&O: 06/21/17 06/22/17 06/23/17 06:59 06:59 06:59 Intake Total 400 300 Output Total 620 Balance -220 300 Result Diagrams: 06/20/17 03:56 06/20/17 03:56 Phys Exam - Physical Examination HEENT: PERRLA, moist MMs Neck: no JVD, supple Respiratory: no wheezing, no rales Cardiovascular: RRR, no significant murmur Gastrointestinal: soft, non-tender, positive bowel sounds Musculoskeletal: no edema pulses are dopplerable Neurological: non-focal, moves all 4 limbs Psychiatric: normal affect, A&O x 3 Dx/Plan (1) Ischemic ulcer of right foot Code(s): L97.519 - NON-PRS CHRONIC ULCER OTH PRT RIGHT FOOT W UNSP SEVERITY Status: Acute Comment: with gangrene of right 3,4 toes and edema (2) PVD (peripheral vascular disease) Code(s): I73.9 - PERIPHERAL VASCULAR DISEASE, UNSPECIFIED Status: Acute Comment: s/p stent to right ext iliac art and FEMPOP 06/19/2017 (3) HTN (hypertension) Code(s): I10 - ESSENTIAL (PRIMARY) HYPERTENSION Status: Chronic Qualifiers: Hypertension type: essential hypertension Qualified Code(s): I10 - Essential (primary) hypertension (4) Renal artery stenosis Code(s): I70.1 - ATHEROSCLEROSIS OF RENAL ARTERY Status: Acute (5) Chronic anemia Code(s): D64.9 - ANEMIA, UNSPECIFIED Status: Chronic (6) CAD (coronary artery disease) Code(s): I25.10 - ATHSCL HEART DISEASE OF [place] CORONARY ARTERY W/O ANG PCTRS Status: Suspected Qualifiers: Coronary Disease-Associated Artery/Lesion type: [place] artery [place] vs. transplanted heart: [place] heart Associated angina: without angina Qualified Code(s): I25.10 - Atherosclerotic heart disease of [place] coronary artery without angina pectoris (7) Physical deconditioning Code(s): R53.81 - OTHER [place] Status: Acute - Plan rehab eval -: bradycardic with pauses (afib), stop coreg completely, cardio consult -: echo, pt f/u with (next appt is 6months away) -: flomax, watch for u.retention -: d/w and pt at bedside * . Review of Systems - Medications/Allergies Allergies/Adverse Reactions: Allergies Allergy/AdvReac Type Severity Reaction Status Date / Time No Known Drug Allergies Allergy Verified 06/18/17 23:59 Medications: Current Medications Acetaminophen (Tylenol) 650 mg PO Q4H PRN PRN Reason: Headache/Fever or Pain Hydrocodone Bitart/Acetaminophen ([place] 5/325) 1 tab PO Q4H PRN PRN Reason: Moderate Pain (4-6) Last Admin: 06/20/17 20:01 Dose: 1 tab Aspirin (Aspirin Chewable) 81 mg PO DAILY [facility] Last Admin: 06/22/17 10:16 Dose: 81 mg Bisacodyl (Dulcolax) 10 mg PO DAILYPRN PRN PRN Reason: Constipation Last Admin: 06/22/17 10:19 Dose: 10 mg Hydralazine HCl (Apresoline) 10 mg SLOW IVP Q4H PRN PRN Reason: SBP Greater Than 170 Last Admin: 06/19/17 03:42 Dose: 10 mg Losartan Potassium (Cozaar) 100 mg PO DAILY [facility] Last Admin: 06/22/17 10:16 Dose: 100 mg Morphine Sulfate (Morphine) 2 mg SLOW IVP Q6H PRN PRN Reason: Mild Pain (1-3) Morphine Sulfate (Morphine) 4 mg SLOW IVP Q6H PRN PRN Reason: Moderate Pain (4-6) Last Admin: 06/19/17 23:51 Dose: 4 mg Ondansetron HCl (Zofran) 4 mg IVP Q6H PRN PRN Reason: Nausea/Vomiting Sodium Chloride (Flush - Normal Saline) 10 ml IVF PRN PRN PRN Reason: Saline Flush Tamsulosin HCl (Flomax) 0.4 mg PO DAILY [facility] Last Admin: 06/22/17 10:16 Dose: 0.4 mg
--- NOTE | 2017-06-22 18:13 | CON ---
DATE OF CONSULTATION: 06/22/2017 REASON FOR CONSULTATION: Bradycardia. REFERRING PROVIDER: Mahogany Spaulding M.D. HISTORY OF PRESENT ILLNESS: Mr. Ayala is an 87-year-old gentleman who is a patient of Dr. Arpit farley. He recently presented with ischemic leg. He underwent successful fem-pop bypass and stent pl acement. I was consulted for bradycardia. Mr. Ayala has been on Coreg in the past. Dose is unknown. No diz ziness, lightheadedness, or associated symptoms. He had an episode on the monitor with 6 seconds of a heart rate in the 30s. Otherwise, has been in the 50s to 60s. PAST MEDICAL HISTORY: Hypertension, atrial fibrillation on anticoagulation therapy, knee arthroscopy , hernia repair, and cataract surgery. SOCIAL HISTORY: Remote tobacco use. ALLERGIES: None. CURRENT MEDICATIONS: Losartan, iron, and Coreg. REVIEW OF SYSTEMS: Recent 10-point review of systems as above, otherwise negative. PHYSICAL EXAMINATION: GENERAL: Patient is a pleasant male who is in no acute distress. The patient appears his stated age . VITAL SIGNS: Blood pressure 112/47, pulse 54, temperature 98.2. NEUROLOGIC: The patient is alert and oriented times 3 with no focal neurologic deficits. HEENT: Sclerae without icterus. Mouth has moist mucous membranes with normal pallor. NECK: No JVD. Carotid upstroke brisk. No bruits bilaterally. LUNGS: Clear to auscultation with unlabored respirations. BACK: No scoliosis or kyphosis. CARDIAC: Irregular, irregular. ABDOMEN: Soft, nontender, nondistended. No peritoneal signs present. No hepatosplenomegaly. No ab normal striae. EXTREMITIES: 2+ femoral and 2+ dorsalis pedis pulses. No cyanosis, clubbing, or edema. Right foot appears bandaged. SKIN: No gross abnormalities. PERTINENT LABORATORY DATA: Hemoglobin 9.6, creatinine 0.7. IMPRESSION: Bradycardia. RECOMMENDATIONS: Agree with stopping Coreg. We will continue to monitor overnight. He appears to n ot have significant symptoms. Post-observation recommended.
--- NOTE | 2017-06-23 08:22 | PRG ---
DATE OF SERVICE: 06/23/2017 Mr. Ayala's heart rate has been stable overnight. No current symptoms. PHYSICAL EXAMINATION: VITAL SIGNS: Blood pressure 176/75, pulse 66, temperature 98.1. LUNGS: Clear to auscultation. CARDIAC: Irregularly irregular. ABDOMEN: Soft, nontender, nondistended. EXTREMITIES: No significant changes. IMPRESSION: 1. Bradycardia. 2. Severe peripheral vascular disease status post fem-pop bypass. RECOMMENDATIONS: We will continue to hold beta stephanie therapy. His heart rate appears stable. Wojonathan ld continue anticoagulation therapy when okay with Dr. Wilson. From a CV standpoint, I have no further recommendations. Mr. Ayala will be placed. I did state he should follow up with his primary publications writer for recommendations on continuing Coreg.
[2017-06-23] MEDS: Losartan 25 MG TAB PO SCH (09:47)
[2017-06-23] MEDS: Tamsulosin HCl 0.4 MG CAP PO SCH (09:47)
--- NOTE | 2017-06-23 10:58 | PDOC.PN ---
- Subjective Encounter Start Date: 06/23/17 Encounter Start Time: 09:45 Subjective: no chest pain or palp -: is feeling better, sat and ate breakfast - Objective MAR Reviewed: Yes Vital Signs & Weight: Vital Signs (12 hours) Temp Pulse Resp BP Pulse Ox 06/23/17 07:40 98.1 F 66 18 176/75 H 95 06/23/17 04:42 98.4 F 70 17 153/63 H 97 06/23/17 01:08 98.3 F 61 17 136/58 L 94 L Weight Admit Weight 182 lb 9.6 oz Weight 191 lb 4 oz Most Recent Monitor Data Heart Rate from ECG 46 NIBP 117/37 NIBP BP-Mean 86 Respiration from ECG 17 SpO2 99 I&O: 06/22/17 06/23/17 06/24/17 06:59 06:59 06:59 Intake Total 900 300 Output Total 425 75 Balance 475 225 Result Diagrams: 06/20/17 03:56 06/20/17 03:56 Phys Exam - Physical Examination HEENT: PERRLA, moist MMs Neck: no JVD, supple Respiratory: no wheezing, no rales Cardiovascular: no significant murmur, irregular Gastrointestinal: soft, non-tender, positive bowel sounds mild post op edema in right LE, has gangrene of 3,4 toe tips right Neurological: non-focal, moves all 4 limbs Dx/Plan (1) Ischemic ulcer of right foot Code(s): L97.519 - NON-PRS CHRONIC ULCER OTH PRT RIGHT FOOT W UNSP SEVERITY Status: Acute Comment: with gangrene of right 3,4 toes and edema (2) PVD (peripheral vascular disease) Code(s): I73.9 - PERIPHERAL VASCULAR DISEASE, UNSPECIFIED Status: Acute Comment: s/p stent to right ext iliac art and FEMPOP 06/19/2017 (3) HTN (hypertension) Code(s): I10 - ESSENTIAL (PRIMARY) HYPERTENSION Status: Chronic Qualifiers: Hypertension type: essential hypertension Qualified Code(s): I10 - Essential (primary) hypertension (4) Renal artery stenosis Code(s): I70.1 - ATHEROSCLEROSIS OF RENAL ARTERY Status: Chronic (5) Chronic anemia Code(s): D64.9 - ANEMIA, UNSPECIFIED Status: Chronic (6) CAD (coronary artery disease) Code(s): I25.10 - ATHSCL HEART DISEASE OF [place] CORONARY ARTERY W/O ANG PCTRS Status: Suspected Qualifiers: Coronary Disease-Associated Artery/Lesion type: [place] artery [place] vs. transplanted heart: [place] heart Associated angina: without angina Qualified Code(s): I25.10 - Atherosclerotic heart disease of [place] coronary artery without angina pectoris (7) Physical deconditioning Code(s): R53.81 - OTHER [place] Status: Acute - Plan is awaiting placement at [facility] -: may dc anytime if placement is ready -: hold BB due to bradycardia, is slowly resolving, pt is asymptomatic -: on asp, cozaar and flomax, is voiding better now -: PT to mobilize as tolerated * . Review of Systems - Medications/Allergies Allergies/Adverse Reactions: Allergies Allergy/AdvReac Type Severity Reaction Status Date / Time No Known Drug Allergies Allergy Verified 06/18/17 23:59 Medications: Current Medications Acetaminophen (Tylenol) 650 mg PO Q4H PRN PRN Reason: Headache/Fever or Pain Hydrocodone Bitart/Acetaminophen ([place] 5/325) 1 tab PO Q4H PRN PRN Reason: Moderate Pain (4-6) Last Admin: 06/20/17 20:01 Dose: 1 tab Aspirin (Aspirin Chewable) 81 mg PO DAILY [facility] Last Admin: 06/23/17 09:47 Dose: 81 mg Bisacodyl (Dulcolax) 10 mg PO DAILYPRN PRN PRN Reason: Constipation Last Admin: 06/22/17 10:19 Dose: 10 mg Hydralazine HCl (Apresoline) 10 mg SLOW IVP Q4H PRN PRN Reason: SBP Greater Than 170 Last Admin: 06/19/17 03:42 Dose: 10 mg Losartan Potassium (Cozaar) 100 mg PO DAILY [facility] Last Admin: 06/23/17 09:47 Dose: 100 mg Morphine Sulfate (Morphine) 2 mg SLOW IVP Q6H PRN PRN Reason: Mild Pain (1-3) Morphine Sulfate (Morphine) 4 mg SLOW IVP Q6H PRN PRN Reason: Moderate Pain (4-6) Last Admin: 06/19/17 23:51 Dose: 4 mg Ondansetron HCl (Zofran) 4 mg IVP Q6H PRN PRN Reason: Nausea/Vomiting Sodium Chloride (Flush - Normal Saline) 10 ml IVF PRN PRN PRN Reason: Saline Flush Tamsulosin HCl (Flomax) 0.4 mg PO DAILY [facility] Last Admin: 06/23/17 09:47 Dose: 0.4 mg
[2017-06-23] MEDS: hydrALAZINE 20 MG/ML VIAL SLOW IVP PRN (16:39)
[2017-06-23 18:41] LABS: Actual Bicarbonate (HCO3a) 21.1 mEq/L (22-26); Base Excess (BEa) -3.4 mEq/L (0 (+/-) 2.5); CO2 Tension 35.3 mmHg (35.0-45.0); O2 Tension (PaO2) 286.9 mmHg (80.0-100.0); pH, Arterial 7.39 (7.35-7.45)
[2017-06-23 18:42] LABS: Analyzer IN Cardio OR; Calcium, Ionized 1.2 mmol/L (1.12-1.30); Hemoglobin (Hb) 8.7 g/dL (14.0-18.0); Puncture Site ALINE
[2017-06-23 18:42] LABS: Actual Bicarbonate (HCO3a) 20.5 mEq/L (22-26); Base Excess (BEa) -3.8 mEq/L (0 (+/-) 2.5); O2 Tension (PaO2) 246.6 mmHg (80.0-100.0)
[2017-06-23 18:43] LABS: Analyzer IN Cardio OR; Calcium, Ionized 1.1 mmol/L (1.12-1.30); Hematocrit-ABG 27.4 % (42.0-52.0); Hemoglobin (Hb) 8.7 g/dL (14.0-18.0); Puncture Site ALINE
[2017-06-23 18:44] LABS: Actual Bicarbonate (HCO3a) 21.9 mEq/L (22-26); Base Excess (BEa) -2.4 mEq/L (0 (+/-) 2.5); CO2 Tension 35.7 mmHg (35.0-45.0); Hematocrit-ABG 26.9 % (42.0-52.0); Hemoglobin (Hb) 8.9 g/dL (14.0-18.0); O2 Tension (PaO2) 246.2 mmHg (80.0-100.0); pH, Arterial 7.41 (7.35-7.45)
[2017-06-23 18:45] LABS: Analyzer IN Cardio OR; Calcium, Ionized 1.1 mmol/L (1.12-1.30); Puncture Site ALINE
[2017-06-24 06:07] LABS: #Eosinphils 0.1 thou/uL (0.0-0.7); #Lymphocytes 1.7 thou/uL (1.20-3.40); #Monocytes 1.3 thou/uL (0.11-0.59); #Neutrophils 7.7 thou/uL (1.40-6.50); %Basophils 0.1 % (0.0-1.0); %Eosinophils 0.8 % (0.0-10.0); %Lymphocytes 15.6 % (21.0-51.0); %Monocytes 11.9 % (0.0-10.0); %Neutrophils 71.6 % (42.0-75.0); Hemoglobin 8.4 g/dL (14.0-18.0); Mean Corpuscular HGB CONC 34.2 g/dL (32.0-36.0); Mean Corpuscular Hemoglobin 31.9 pg (27.0-31.0); Mean Corpuscular Volume 93.1 fl (80.0-94.0); Platelet Count 249 thou/uL (130-400); RBC Distribution Width 12.5 % (11.5-14.5); Red Blood Cell (RBC) Count 2.64 mill/uL (4.70-6.10); White Blood Cell (WBC) Count 10.8 thou/uL (4.8-10.8)
[2017-06-24 06:17] LABS: Anion Gap 10 mmol/L (10-20); BUN (Urea Nitrogen) 42 mg/dL (8.4-25.7); Calc. Creatinine Clearance 66 mL/min (70-130); Calcium 8.5 mg/dL (7.8-10.44); Carbon Dioxide 25 mmol/L (23-31); Chloride 99 mmol/L (98-107); Estimated GFR-MDRD 72; Glucose 97 mg/dL (83-110); Potassium 4.2 mmol/L (3.5-5.1); Sodium 130 mmol/L (136-145)
[2017-06-24] MEDS: Losartan 25 MG TAB PO SCH (09:51)
[2017-06-24] MEDS: Tamsulosin HCl 0.4 MG CAP PO SCH (09:52)
[2017-06-24] MEDS ORDERED: Polyethylene Glycol 3350 17 GM Packet PO PRN (14:44)
--- NOTE | 2017-06-24 19:28 | PDOC.PN ---
- Subjective Encounter Start Date: 06/24/17 Encounter Start Time: 16:00 Subjective: nsg notes rev, woodrow ovn, no c/o, no fevers/ chills/ new discomfort or pain - Objective Vital Signs & Weight: Vital Signs (12 hours) Temp Pulse Resp BP Pulse Ox 06/24/17 15:51 97.8 F 64 18 160/71 H 97 06/24/17 11:30 97.8 F 75 20 159/73 H 95 06/24/17 08:30 97.8 F 75 20 95 Weight Admit Weight 182 lb 9.6 oz Weight 191 lb 4 oz Most Recent Monitor Data Heart Rate from ECG 46 NIBP 117/37 NIBP BP-Mean 86 Respiration from ECG 17 SpO2 99 I&O: 06/23/17 06/24/17 06/25/17 06:59 06:59 06:59 Intake Total 900 900 300 Output Total 425 75 600 Balance 475 825 -300 Result Diagrams: 06/24/17 05:40 06/24/17 05:40 Phys Exam - Physical Examination Constitutional: NAD HEENT: PERRLA, moist MMs, sclera anicteric Respiratory: no wheezing, no rales, no rhonchi Cardiovascular: RRR, no significant murmur, no rub Gastrointestinal: soft, positive bowel sounds Dx/Plan - Plan * (1) Ischemic ulcer of right foot dry gangrene of right 3,4 toes wound care (2) PVD (peripheral vascular disease) s/p stent to right ext iliac art and FEMPOP 06/19/2017 (3) HTN (hypertension) stable HOLD beta blockade 2/2 asymptomatic bradycardia (currently resolved and hemodynmically stable) (4) Renal artery stenosis stable, chronic (5) Chronic anemia hemodynamically stable (6) CAD (coronary artery disease) hemodynamically stable (7) Physical deconditioning continue physical therapy, walking program as tolerated awaiting placement at [facility] BPH with urinary retention continue flomax, stable diet: as tina activity: as tina
[2017-06-25] MEDS: Losartan 25 MG TAB PO SCH (08:20)
[2017-06-25] MEDS: Tamsulosin HCl 0.4 MG CAP PO SCH (08:21)
--- NOTE | 2017-06-25 16:34 | PDOC.PN ---
- Subjective Encounter Start Date: 06/25/17 Encounter Start Time: 16:00 Subjective: nsg notes rev, woodrow ovn, no new issues, awaiting placement - Objective Vital Signs & Weight: Vital Signs (12 hours) Temp Pulse Pulse Pulse Resp BP BP 06/25/17 16:00 98.1 F 76 18 06/25/17 11:51 97.9 F 81 18 06/25/17 09:10 69 74 119/60 148/68 H 06/25/17 08:25 98.1 F 68 18 06/25/17 08:00 98.1 F 68 18 BP Pulse Ox 06/25/17 16:00 141/67 H 98 06/25/17 11:51 152/51 H 95 06/25/17 09:10 06/25/17 08:25 97 06/25/17 08:00 166/75 H 97 Weight Admit Weight 182 lb 9.6 oz Weight 191 lb 4 oz Most Recent Monitor Data Heart Rate from ECG 46 NIBP 117/37 NIBP BP-Mean 86 Respiration from ECG 17 SpO2 99 I&O: 06/24/17 06/25/17 06/26/17 06:59 06:59 06:59 Intake Total 900 300 Output Total 75 600 200 Balance 825 -300 -200 Result Diagrams: 06/24/17 05:40 06/24/17 05:40 Dx/Plan - Plan Awaiting placement no change to previous assessment at plan as follows: * (1) Ischemic ulcer of right foot dry gangrene of right 3,4 toes wound care (2) PVD (peripheral vascular disease) s/p stent to right ext iliac art and FEMPOP 06/19/2017 (3) HTN (hypertension) stable HOLD beta blockade 2/2 asymptomatic bradycardia (currently resolved and hemodynmically stable) will continue to hold/ d/c from home med list at d/c (4) Renal artery stenosis stable, chronic (5) Chronic anemia hemodynamically stable (6) CAD (coronary artery disease) hemodynamically stable (7) Physical deconditioning continue physical therapy, walking program as tolerated awaiting placement at [facility] BPH with urinary retention continue flomax, stable diet: as tina activity: as tina Review of Systems - Medications/Allergies Allergies/Adverse Reactions: Allergies Allergy/AdvReac Type Severity Reaction Status Date / Time No Known Drug Allergies Allergy Verified 06/18/17 23:59
[2017-06-26] MEDS: Bisacodyl 5 MG TAB PO PRN (08:49)
[2017-06-26] MEDS: Tamsulosin HCl 0.4 MG CAP PO SCH (08:49)
[2017-06-26] MEDS: Losartan 25 MG TAB PO SCH (08:50)
[2017-06-26 11:40] VITALS: TEMP 98
[2017-06-26 12:25] VITALS: BP 110/64
--- NOTE | 2017-06-29 14:42 | DIS ---
DISCHARGE DIAGNOSES: 1. Ischemic ulcer of the right foot. 2. Peripheral vascular disease. 3. Physical deconditioning. 4. Benign prostatic hypertrophy with urinary retention. 5. Status post stent to the right iliac artery and fem-pop on 06/19/2017. BRIEF SUMMARY OF HOSPITAL COURSE: This is an 87-year-old male with a known history of atrial fibrillation, CVA, hypertension, who presented with discoloration of his right foot. Please see the original history and physical for full details surrounding admission. The patient was seen by Cardiovascular Surgery given the setting of known coronary artery disease and known peripheral vascular disease. During this hospitalization, he underwent a right femoral to popliteal artery bypass with nonreversed saphenous vein for his ischemic right foot. The patient tolerated this procedure well; however, unfortunately, the patient has a severe component of deconditioning. He had a poor physical condition prior to procedure and during his hospitalization has progressed in terms of his deconditioning and at the time of discharge he is being discharged to a rehabilitative facility in [place]. Overall, the patient's chronic prognosis is very guarded. This was discussed with the patient and his at bedside. I would recommend that the patient consider an outpatient palliative care consult as well. Remainder of the patient's chronic medical issues was otherwise stable during this hospitalization. It took several days post- procedurally and clearance for the patient to be discharged to obtain bed availability. CONSULTATIONS: 1. Cardiovascular Surgery. 2. Cardiology. 3. Physical therapy. 4. Wound Care. MEDICATION RECONCILIATION: Please see the EMR for full details. The patient will continue on his home regimen with the addition of tamsulosin 0.4 mg p.o. daily, losartan 100 mg p.o. daily, aspirin 81 mg p.o. daily, polyethylene glycol 17 grams p.o. daily p.r.n., bisacodyl 10 mg p.o. daily p.r.n., acetaminophen 650 mg p.o. q.4 hours p.r.n. CONDITION AT DISCHARGE: At the time of discharge, the patient is hemodynamically stable. He is tolerating his baseline diet and is able to participate with physical therapy. The patient was seen and examined at the time of discharge. DISCHARGE INSTRUCTIONS: The patient is asked to follow up closely with his outpatient team including his primary care provider and webbing seamer [employer]. The patient's is able to complete teach back. Thank you for asking me to care for the patient. Greater than 30 minutes were spent coordinating discharge for the patient. YAYA
== END 2017-06-26 14:10 | DRG 253 ==
LOC: ERS 13:16 → SURG A 18:47 → 2NO 22:37 → CCU 06-19 10:04 → 2SE 06-20 17:44
PROVIDERS: ADMIT Internal Medicine; ATTEND Internal Medicine
PROC: 041K09L Bypass Right Femoral Artery to Popliteal Artery with Autologous Venous Tissue, Open Approach (ICD-10-PCS; principal; 2017-06-19)
PROC: 06BP0ZZ Excision of Right Saphenous Vein, Open Approach (ICD-10-PCS; 2017-06-19)
PROC: 047H3DZ Dilation of Right External Iliac Artery with Intraluminal Device, Percutaneous Approach (ICD-10-PCS; 2017-06-19)
PROC: 30233N1 Transfusion of Nonautologous Red Blood Cells into Peripheral Vein, Percutaneous Approach (ICD-10-PCS; 2017-06-19)
DX: I70.261 Atherosclerosis of native arteries of extremities with gangrene, right leg (principal); L03.115 Cellulitis of right lower limb; I48.91 Unspecified atrial fibrillation; I70.1 Atherosclerosis of renal artery; L97.519 Non-pressure chronic ulcer of other part of right foot with unspecified severity; I10 Essential (primary) hypertension; Z86.73 Personal history of transient ischemic attack (TIA), and cerebral infarction without residual deficits; Z87.891 Personal history of nicotine dependence; I25.10 Atherosclerotic heart disease of native coronary artery without angina pectoris; D64.9 Anemia, unspecified
CPT/HCPCS: 36415; 36416; 36430; 37221; 75635; 76942; 80048; 80053; 82805; 83605; 85025; 85347; 85610; 85652; 85730; 86140; 86850; 86900; 86901; 87040; 87149; 93306; 96360; 96374; A4216; C1725; C1769; G8978-GP-CK; G8979-GP-CI; G8987-GO-CL; G8988-GO-CJ; J0360; J0692; J1100; J1644; J2001; J2270; J2405; J2704; J2720; J3010; J3490; P9016

== ENCOUNTER 2017-07-03 15:56 | Inpatient (IN) | payer MEDICARE ==
[2017-07-03 17:22] LABS: #Eosinphils 0.1 thou/uL (0.0-0.7); #Lymphocytes 1.4 thou/uL (1.20-3.40); #Monocytes 0.9 thou/uL (0.11-0.59); #Neutrophils 5.5 thou/uL (1.40-6.50); %Basophils 0.3 % (0.0-1.0); %Eosinophils 0.9 % (0.0-10.0); %Lymphocytes 17.9 % (21.0-51.0); %Monocytes 11.4 % (0.0-10.0); %Neutrophils 69.4 % (42.0-75.0); Hemoglobin 8.4 g/dL (14.0-18.0); Mean Corpuscular HGB CONC 33.4 g/dL (32.0-36.0); Mean Corpuscular Hemoglobin 31.9 pg (27.0-31.0); Mean Corpuscular Volume 95.4 fl (80.0-94.0); Mean Platelet Volume 5.4 fL (7.4-10.4); Platelet Count 285 thou/uL (130-400); RBC Distribution Width 15.5 % (11.5-14.5); Red Blood Cell (RBC) Count 2.62 mill/uL (4.70-6.10)
[2017-07-03 17:30] LABS: PTT 33.6 SEC (22.9-36.1); Prothrombin Time 13.6 SEC (12.0-14.7)
[2017-07-03 17:45] LABS: ALT (SGPT) 11 U/L (8-55); AST (SGOT) 16 U/L (5-34); Albumin 3.6 g/dL (3.4-4.8); Alkaline Phosphatase 110 U/L (40-150); Anion Gap 15 mmol/L (10-20); BUN (Urea Nitrogen) 24 mg/dL (8.4-25.7); Bilirubin, Total 1.6 mg/dL (0.2-1.2); Calc. Creatinine Clearance 0 mL/min (70-130); Calcium 8.9 mg/dL (7.8-10.44); Carbon Dioxide 22 mmol/L (23-31); Chloride 97 mmol/L (98-107); Estimated GFR-MDRD 72; Globulin 2.8 g/dL (2.4-3.5); Glucose 88 mg/dL (83-110); Potassium 4.6 mmol/L (3.5-5.1); Protein, Total 6.4 g/dL (5.8-8.1); Sodium 129 mmol/L (136-145)
[2017-07-03] MEDS ORDERED: Acetaminophen 650 MG Suppository PR PRN (19:08)
--- NOTE | 2017-07-03 21:06 | HP ---
PRESENTING COMPLAINT: "I was told my labs were abnormal." HISTORY OF PRESENT ILLNESS: Mr. Lucy Muñoz is an 87-year-old male with a past medical history of PVD, hypertension, chronic anemia, CAD, and recently had right stent and femoral-popliteal bypass don e by Dr. Wilson about 3 weeks ago. He was sent to the emergency room from a senior care due to abnor mal labs. His hemoglobin was 7.4. His reported that patient was anemic in February with hemogl obin of 6.7 and was transfused then. He also had an upper and lower scope, which was reported as nor mal except from two benign polyps. Today, he has no complaints. He denies melanotic stools, hematem esis, or any passage of blood whatsoever. At the emergency room, fecal occult blood was done, which was negative. In addition, his hemoglobin was checked again and was 8.4 and looking at the trend, hi s hemoglobin was about 10.6 on 06/19/2017. PAST MEDICAL HISTORY: As stated in HPI. In addition, he has a history of atrial fibrillation on Génesis osman and aspirin. PAST SURGICAL HISTORY: Umbilical hernia repair, right knee arthroscopy and his laser surgery by Dr. Wilson as stated in HPI. SOCIAL HISTORY: Denies smoking, drinking alcohol, or use of illicit drugs. FAMILY HISTORY: Reviewed, noncontributory. HOME MEDICATIONS: Reviewed. ALLERGIES: No known drug allergies. REVIEW OF SYSTEMS: Constitutional: Negative. HEENT: Negative. Neck: Negative. Respiratory: Ne gative. GI: Denies abdominal pain, constipation, diarrhea, melena, nausea, or vomiting. Musculoske letal: Negative. Skin: Reports necrotic toes on the right lower extremities. Hematology: Negativ e. Allergy/Immunology: Negative. Neurologic: Negative. Psychiatric: Negative. PHYSICAL EXAMINATION: VITAL SIGNS: Temperature 98 degrees Fahrenheit, blood pressure 192/59, pulse rate 80, respiration ra te 20, oxygen saturation 100% on room air. CONSTITUTIONAL: No acute distress, lying comfortably in bed. HEENT: Pale conjunctivae. Anicteric. PERRLA, EOMI. Normocephalic, atraumatic. NECK: Supple, full range of movement. RESPIRATORY: Vesicular breath sounds bilaterally with no wheezes or rales. CARDIOVASCULAR: S1 and S2 only. No murmurs, rubs, or gallops. ABDOMEN: Soft, nontender, nondistended. Bowel sounds normoactive. No hepatosplenomegaly. MUSCULOSKELETAL: No edema. Has the first 4 digits of the right lower extremities with dry gangrene, which patient states is unchanged. SKIN: As stated above. NEUROLOGIC: Alert and oriented x2 to person and place. No focal deficits reported to be at his base line. PSYCHIATRIC: Normal mood and affect. LABORATORY DATA: Significant for anemia, hemoglobin of 8.4, platelet count 285. Chemistry showed hy ponatremia of 129, otherwise within normal limits. Stool for occult blood was positive. ASSESSMENT AND PLAN: 1. Gastrointestinal bleed, unclear if it is upper or lower. He has been on anticoagulation is giuseppe garzon contributing to this. Therefore, we will hold aspirin and Eliquis for now. We will place patien t n.p.o., get GI consult for possible EGD/colonoscopy. We will also trend his hemoglobin every 6 adela rs. We will type and screen. Place him on maintenance IV fluids and monitor blood pressure closely. He will also be placed on sequential compression devices as deep venous thrombosis prophylaxis is c ontraindicated. Lastly, we will have him on IV Protonix 40 mg q.12 hours. 2. Atrial fibrillation. He is currently rate controlled. We will hold anticoagulation and placed o n SCDs. 3. Peripheral artery disease. Patient seems to be at baseline. We will resume his home medications when appropriate. 4. Hypertension. His blood pressure is above goal, we will restart his home medications. We will m onitor closely. 5. History of cerebrovascular accident. Patient seems to be at his baseline. We will also resume h is home medications once they are confirmed. 6. Right-foot dry gangrene. Patient had history of peripheral vascular disease and recently had jairo champ to relieve this. He reports it is unchanged, so we will monitor him closely. 7. Code status: DNR.
[2017-07-03] MEDS: Dextrose 5 %-0.45 % NaCl 1,000 ML IV SCH (22:51)
[2017-07-03] MEDS: Pantoprazole 40 MG VIAL IVP SCH (22:51)
[2017-07-04 02:39] VITALS: BMI 20.3
[2017-07-04 04:21] LABS: #Eosinphils 0.1 thou/uL (0.0-0.7); #Lymphocytes 1.5 thou/uL (1.20-3.40); #Neutrophils 4.3 thou/uL (1.40-6.50); %Basophils 0.6 % (0.0-1.0); %Eosinophils 1.9 % (0.0-10.0); %Lymphocytes 21.7 % (21.0-51.0); %Monocytes 13.8 % (0.0-10.0); Hemoglobin 7.8 g/dL (14.0-18.0); Mean Corpuscular Hemoglobin 31.6 pg (27.0-31.0); Mean Corpuscular Volume 95.8 fl (80.0-94.0); Mean Platelet Volume 5.5 fL (7.4-10.4); Platelet Count 246 thou/uL (130-400); RBC Distribution Width 15.6 % (11.5-14.5); Red Blood Cell (RBC) Count 2.46 mill/uL (4.70-6.10); White Blood Cell (WBC) Count 6.9 thou/uL (4.8-10.8)
[2017-07-04 04:31] LABS: ALT (SGPT) 10 U/L (8-55); AST (SGOT) 15 U/L (5-34); Albumin 3.1 g/dL (3.4-4.8); Alkaline Phosphatase 94 U/L (40-150); Anion Gap 12 mmol/L (10-20); BUN (Urea Nitrogen) 21 mg/dL (8.4-25.7); Bilirubin, Direct 0.8 mg/dL (0.1-0.3); Bilirubin, Total 1.5 mg/dL (0.2-1.2); Calc. Creatinine Clearance 59 mL/min (70-130); Calcium 8.4 mg/dL (7.8-10.44); Carbon Dioxide 22 mmol/L (23-31); Chloride 99 mmol/L (98-107); Estimated GFR-MDRD 83; Glucose 92 mg/dL (83-110); Potassium 4.2 mmol/L (3.5-5.1); Protein, Total 5.4 g/dL (5.8-8.1); Sodium 129 mmol/L (136-145)
[2017-07-04] MEDS: Pantoprazole 40 MG VIAL IVP SCH ×2 (08:01→20:07)
[2017-07-04] MEDS ORDERED: Prevnar 13-Val Conj/PF 0.5 ML SYRINGE IM ONE (09:00)
--- NOTE | 2017-07-04 11:32 | PDOC.PN ---
- Subjective Encounter Start Date: 07/04/17 Encounter Start Time: 11:41 Subjective: No complaints today. Reports feeling very well. -: No acute events overnight. - Objective Resuscitation Status: Resuscitation Status DNR:Do Not Resuscitate MAR Reviewed: Yes Vital Signs & Weight: Vital Signs (12 hours) Temp Pulse Resp BP Pulse Ox 07/04/17 08:14 97.3 F L 61 18 158/67 H 93 L 07/04/17 08:00 97.3 F L 61 18 96 07/04/17 03:00 97.8 F 67 18 154/65 H 94 L 07/04/17 00:00 97.6 F 63 18 162/67 H 99 Weight Weight 149 lb 14.629 oz Result Diagrams: 07/04/17 07:30 07/04/17 03:53 Phys Exam - Physical Examination Constitutional: NAD HEENT: PERRLA, moist MMs, sclera anicteric, oral pharynx no lesions Neck: no JVD, supple, full ROM Respiratory: no wheezing, no rales, no rhonchi, clear to auscultation bilateral Cardiovascular: no significant murmur, no rub regular rate, irregular rhythm Gastrointestinal: soft, non-tender, no distention, positive bowel sounds Musculoskeletal: no edema, pulses present Neurological: non-focal, moves all 4 limbs Psychiatric: normal affect, A&O x 3 Skin: no rash, normal turgor Dx/Plan (1) GI bleed Code(s): K92.2 - GASTROINTESTINAL HEMORRHAGE, UNSPECIFIED Status: Acute Qualifiers: GI bleed type/associated pathology: unspecified gastrointestinal hemorrhage type Qualified Code(s): K92.2 - Gastrointestinal hemorrhage, unspecified Comment: Has a h/o hemorrhoids but current source unclear. GI consult in place. Remains NPO, IV PPI and IVF. (2) HTN (hypertension) Code(s): I10 - ESSENTIAL (PRIMARY) HYPERTENSION Status: Chronic Qualifiers: Hypertension type: essential hypertension Qualified Code(s): I10 - Essential (primary) hypertension Comment: Will gradually reintroduce home medications. (3) A-fib Code(s): I48.91 - UNSPECIFIED ATRIAL FIBRILLATION Status: Acute Qualifiers: Atrial fibrillation type: paroxysmal Qualified Code(s): I48.0 - Paroxysmal atrial fibrillation Comment: Reports being on Eliquis and ASA at home. Will hold. (4) Ischemic ulcer of right foot Code(s): L97.519 - NON-PRS CHRONIC ULCER OTH PRT RIGHT FOOT W UNSP SEVERITY Status: Chronic Comment: with gangrene of right 1,2,3,4 toes. WOund care on board. (5) PVD (peripheral vascular disease) Code(s): I73.9 - PERIPHERAL VASCULAR DISEASE, UNSPECIFIED Status: Chronic Comment: s/p stent to right ext iliac art and FEMPOP 06/19/2017 (6) Chronic anemia Code(s): D64.9 - ANEMIA, UNSPECIFIED Status: Chronic - Plan cont current plan of care, plan discussed w/ family, DVT proph w/SCDs Awaiting GI consult. * . Review of Systems - Medications/Allergies Allergies/Adverse Reactions: Allergies Allergy/AdvReac Type Severity Reaction Status Date / Time No Known Drug Allergies Allergy Verified 06/18/17 23:59 Medications: Current Medications Acetaminophen (Tylenol) 650 mg TX Q4H PRN PRN Reason: Headache/Fever or Pain Dextrose/Sodium Chloride (D5 1/2 Ns) 1,000 mls @ 50 mls/hr IV .Q20H [facility]ENRY Last Admin: 07/03/17 22:51 Dose: 1,000 mls Non-Formulary Medication (Travoprost [Travatan Z]) 1 drop OP QPM [facility] Pantoprazole Sodium (Protonix) 40 mg IVP BID [facility] Last Admin: 07/04/17 08:01 Dose: 40 mg Sodium Chloride (Flush - Normal Saline) 10 ml IVF PRN PRN PRN Reason: Saline Flush Tamsulosin HCl (Flomax) 0.4 mg PO DAILY [facility] Timolol Maleate (Timoptic 0.5% Oph Soln) 1 drop EA EYE BID [facility]ENRY
[2017-07-04] MEDS: Dextrose 5 %-0.45 % NaCl 1,000 ML IV SCH (15:10)
[2017-07-04] MEDS: Latanoprost 0.005% Ophth Soln 2.5 ml Bottle EA EYE SCH (20:07)
[2017-07-04] MEDS: Timolol 0.5% Ophth Soln 5 ml Bottle EA EYE SCH (20:08)
--- NOTE | 2017-07-04 20:25 | CON ---
DATE OF CONSULTATION: 07/04/2017 HISTORY OF PRESENT ILLNESS: Mr. Ayala is an 87-year-old man, who underwent bypass of the vasculatur e of the right lower extremity for gangrene in the right foot and stenting in the right lower extremi ty on 06/18/2017. He was discharged to rehabilitation after that; however, he was noted and rehab to have anemia and was therefore transferred back to the hospital for further evaluation. He has been on Eliquis and aspirin for atrial fibrillation. He has a history of anemia and underwent EGD and col onoscopy at the [facility] back in February for evaluation of the anemia. He had a couple of polyps removed from the colon, but no significant bleeding source was identified. I am working on obtaining these records to verify the specifics of procedures and findings labs at that ti wy. More recently, he has had no evidence of overt GI bleeding. He has had no black stools. Has escobar d no nausea or vomiting or abdominal pain. He did have significant bruising of the abdominal wall fo llowing the recent vascular surgery. He had brown stools today. PAST MEDICAL HISTORY: Hypertension, coronary artery disease, peripheral vascular disease, status pos t recent femoral popliteal bypass and stenting. PAST SURGICAL HISTORY: Umbilical hernia repair, knee surgery, recent vascular surgery, EGD, and colo noscopy in 02/2017. FAMILY HISTORY: Negative for GI malignancy. SOCIAL HISTORY: No alcohol, tobacco, or drugs. ALLERGIES: No known drug allergies. MEDICATIONS: Currently include latanoprost, pantoprazole, tamsulosin, atenolol. He had been on aspi rin and Plavix and iron supplement previously. REVIEW OF SYSTEMS: Negative x10 systems reviewed except as stated in history of present illness. PHYSICAL EXAMINATION: VITAL SIGNS: Temperature 97.7, pulse 68, and blood pressure 158/68. GENERAL: He is in no acute distress. He is awake and alert. HEENT: Eyes have no scleral icterus. Oropharynx is clear, without lesions. NECK: No cervical or supraclavicular lymphadenopathy. LUNGS: Clear to auscultation bilaterally. HEART: Regular rate and rhythm. ABDOMEN: Soft, nontender, nondistended. Bowel sounds are present. He has bruising all down his lef t flank and left thigh. EXTREMITIES: No lower extremity edema. He has black toes on the right foot. LABORATORY DATA: INR 1.0. White blood cell count 6.9, hemoglobin 7.8. His hemoglobin was around 10 at the time of vascular surgery, platelets 246. Creatinine 0.87, bilirubin 1.5, AST 15, ALT 10, alk aron phosphatase 94, albumin 3.1. IMPRESSION: Anemia. This is likely multifactorial. He just had vascular surgery and associated abd ominal wall bruising. He likely had some degree of blood loss along with surgery. He has had no ove rt GI bleeding. Upper and lower endoscopy, which were negative in February. He could have some degr ee of small bowel, chronic blood loss. If he had small bowel vascular ectasias related to chronic he art failure; however, with the lack of overt bleeding and without significant rapid drop in his hemog lobin to suggest a small-bowel bleeding source. Further workup of this would unlikely change managem ent. Meeting capsule endoscopy at this time is unlikely to change management consultant. RECOMMENDATIONS: 1. Check iron, TIBC, ferritin, B12, and folate. 2. PPI can be changed to oral dosing. 3. No further endoscopic intervention is required at this point. 4. I have requested the medication defects over the previous endoscopy report for review. 5. I will sign off for now. Please call if GI can be of assistance.
[2017-07-05 04:30] LABS: #Basophils 0.1 thou/uL (0.0-0.2); #Eosinphils 0.1 thou/uL (0.0-0.7); #Lymphocytes 1.6 thou/uL (1.20-3.40); #Monocytes 1.1 thou/uL (0.11-0.59); #Neutrophils 5.8 thou/uL (1.40-6.50); %Basophils 0.8 % (0.0-1.0); %Eosinophils 1.1 % (0.0-10.0); %Lymphocytes 18.9 % (21.0-51.0); %Monocytes 12.5 % (0.0-10.0); %Neutrophils 66.7 % (42.0-75.0); Hemoglobin 7.8 g/dL (14.0-18.0); Mean Corpuscular HGB CONC 32.8 g/dL (32.0-36.0); Mean Corpuscular Hemoglobin 32.5 pg (27.0-31.0); Mean Corpuscular Volume 99.3 fl (80.0-94.0); Mean Platelet Volume 5.6 fL (7.4-10.4); Platelet Count 262 thou/uL (130-400); RBC Distribution Width 15.7 % (11.5-14.5); White Blood Cell (WBC) Count 8.6 thou/uL (4.8-10.8)
[2017-07-05 04:37] LABS: Anion Gap 11 mmol/L (10-20); BUN (Urea Nitrogen) 18 mg/dL (8.4-25.7); Calc. Creatinine Clearance 58 mL/min (70-130); Calcium 8.4 mg/dL (7.8-10.44); Carbon Dioxide 24 mmol/L (23-31); Chloride 100 mmol/L (98-107); Estimated GFR-MDRD 82; Glucose 102 mg/dL (83-110); Potassium 4.1 mmol/L (3.5-5.1); Sodium 131 mmol/L (136-145)
[2017-07-05] MEDS: Pantoprazole 40 MG VIAL IVP SCH (08:16)
[2017-07-05] MEDS: Tamsulosin HCl 0.4 MG CAP PO SCH (08:16)
[2017-07-05] MEDS: Timolol 0.5% Ophth Soln 5 ml Bottle EA EYE SCH ×2 (08:17→21:15)
[2017-07-05 09:20] LABS: Iron 23 ug/dL (65-175); Iron Binding Capacity, Total 206 mcg/dL (261-462); Transferrin, Serum 165 mg/dL (163-344)
[2017-07-05] MEDS ORDERED: Acetaminophen 325 MG TAB PO SCH (09:45)
[2017-07-05 09:52] LABS: Folate (Folic Acid) 5.9 ng/mL (7.0-31.4)
[2017-07-05] MEDS ORDERED: Losartan 25 MG TAB PO SCH (11:45)
[2017-07-05] MEDS: Dextrose 5 %-0.45 % NaCl 1,000 ML IV SCH (12:02)
[2017-07-05] MEDS ORDERED: hydrALAZINE 20 MG/ML VIAL SLOW IVP SCH (16:30)
[2017-07-05] MEDS: Latanoprost 0.005% Ophth Soln 2.5 ml Bottle EA EYE SCH (21:15)
[2017-07-06 04:54] LABS: #Eosinphils 0.1 thou/uL (0.0-0.7); #Lymphocytes 1.3 thou/uL (1.20-3.40); #Monocytes 0.9 thou/uL (0.11-0.59); #Neutrophils 4.9 thou/uL (1.40-6.50); %Basophils 0.4 % (0.0-1.0); %Monocytes 12.7 % (0.0-10.0); %Neutrophils 67.9 % (42.0-75.0); Hemoglobin 8.8 g/dL (14.0-18.0); Mean Corpuscular HGB CONC 33.6 g/dL (32.0-36.0); Mean Corpuscular Hemoglobin 31.9 pg (27.0-31.0); Mean Corpuscular Volume 94.8 fl (80.0-94.0); Mean Platelet Volume 5.3 fL (7.4-10.4); Platelet Count 209 thou/uL (130-400); RBC Distribution Width 15.3 % (11.5-14.5); Red Blood Cell (RBC) Count 2.76 mill/uL (4.70-6.10); White Blood Cell (WBC) Count 7.2 thou/uL (4.8-10.8)
[2017-07-06 05:02] LABS: Anion Gap 10 mmol/L (10-20); BUN (Urea Nitrogen) 19 mg/dL (8.4-25.7); Calc. Creatinine Clearance 53 mL/min (70-130); Calcium 8.6 mg/dL (7.8-10.44); Carbon Dioxide 24 mmol/L (23-31); Chloride 102 mmol/L (98-107); Estimated GFR-MDRD 73; Glucose 84 mg/dL (83-110); Sodium 132 mmol/L (136-145)
[2017-07-06] MEDS: Dextrose 5 %-0.45 % NaCl 1,000 ML IV SCH (06:41)
[2017-07-06] MEDS: Tamsulosin HCl 0.4 MG CAP PO SCH (09:50)
[2017-07-06] MEDS: Losartan 25 MG TAB PO SCH (09:50)
[2017-07-06] MEDS: Timolol 0.5% Ophth Soln 5 ml Bottle EA EYE SCH ×2 (09:50→22:03)
--- NOTE | 2017-07-06 12:42 | ADD-CON ---
ADDENDUM: I did receive the EGD and colonoscopy report from the medication by Dr. Montes. The colonoscopy revea led a couple of small polyps which were removed and diverticulosis throughout the colon. The EGD was normal except for a small hiatal hernia. No bleeding source was identified. The patient was felt t o have iron indices more consistent with anemia of chronic disease. Again, no further GI interventio n is indicated at this time. As the patient does continue to drop hemoglobin then abdominal imaging with CT to evaluate for retroperitoneal bleeding or Vascular Surgery consultation. Followup can be c onsidered. At this point, no significant contraindication to anticoagulation from a GI standpoint is noted. I will sign off for now. Please call if GI can be of assistance.
--- NOTE | 2017-07-06 19:44 | DIS ---
DATE OF ADMISSION: 07/03/2017 DATE OF DISCHARGE: 07/05/2017 DISCHARGE DIAGNOSES: 1. Anemia, iron deficiency. 2. Peripheral vascular disease, status post recent bypass procedure by Dr. Wilson. 3. Dry gangrene of the right foot with heel and heel ulceration and necrotic second, third, and fourth toes. 4. Chronic atrial fibrillation, recently on Eliquis, that stopped about in March. 5. Hypertension. 6. Chronic anemia. 7. Coronary artery disease. CONSULTATIONS: Dr. Christopher Hutchinson with Gastroenterology. PROCEDURES: Wound care. HISTORY AND PHYSICAL: Mr. Ayala is an 87-year-old gentleman status post femoral stent and fem-pop bypass by Dr. Wilson 3 weeks ago, came to the emergency department due to abnormal labs. Hemoglobin was noted to be 7.4. He does have a history of anemia with hemoglobin 6.7 required some transfusion. At that time, he had upper and lower endoscopy which shows some benign polyp and that was otherwise normal. He was subsequently placed in inpatient. HOSPITAL COURSE: The patient was seen and examined by Dr. Chew and placed in inpatient status. Serial hemoglobins were obtained that showed his hemoglobin go from 8.4 on admission to 7.8 the following morning. No apparent blood loss. Dr. Hutchinson was consulted from Gastroenterology. Recommend iron studies which were obtained today and subsequently recommended no further endoscopy and followup as an outpatient. Patient subsequently did well overnight 07/04 to 07/05, his hemoglobin remained stable at 7.8 No further bleeding. Iron studies came back with iron of 23, TIBC low at 206 and a percent saturation of only 11 and a folic acid 5.9. He was subsequently started on iron b.i.d. instead of every other day and folic acid and was discharged back to correction in stable condition. FOLLOWUP APPOINTMENTS: Dr. Wilson as scheduled. primary care physician as scheduled. DISCHARGE MEDICATIONS: 1. Losartan 100 mg daily. 2. Protonix 40 mg p.o. b.i.d. 3. Flomax 0.4 mg p.o. at bedtime. 4. Timolol 0.5% one drop each eye b.i.d. 5. Travatan Z 1 drop each eye q.p.m. 6. Tylenol as needed. 7. Aspirin 81 mg daily. 8. Bisacodyl 10 mg p.o. daily p.r.n. constipation. 9. Iron sulfate 325 mg p.o. b.i.d. 10. MiraLax 17 grams p.o. daily. 10. Folic acid 1 mg daily. DISCHARGE CONDITION: Stable. DISPOSITION: Being discharged back to [facility] in [place]. DISCHARGE ACTIVITY: Per cardiopulmonary limits. DISCHARGE CONDITION: Stable. DISCHARGE DIET: Heart healthy recommended. MTDD
[2017-07-06] MEDS: Latanoprost 0.005% Ophth Soln 2.5 ml Bottle EA EYE SCH (22:03)
[2017-07-07 05:28] LABS: #Basophils 0.1 thou/uL (0.0-0.2); #Eosinphils 0.1 thou/uL (0.0-0.7); #Lymphocytes 1.6 thou/uL (1.20-3.40); #Monocytes 0.9 thou/uL (0.11-0.59); #Neutrophils 4.4 thou/uL (1.40-6.50); %Basophils 0.9 % (0.0-1.0); %Eosinophils 1.8 % (0.0-10.0); %Lymphocytes 22.1 % (21.0-51.0); %Monocytes 13.1 % (0.0-10.0); %Neutrophils 62.1 % (42.0-75.0); Mean Corpuscular Hemoglobin 31.7 pg (27.0-31.0); Mean Corpuscular Volume 95.8 fl (80.0-94.0); Mean Platelet Volume 5.4 fL (7.4-10.4); Platelet Count 200 thou/uL (130-400); RBC Distribution Width 15.4 % (11.5-14.5); Red Blood Cell (RBC) Count 2.84 mill/uL (4.70-6.10); White Blood Cell (WBC) Count 7.2 thou/uL (4.8-10.8)
[2017-07-07 05:36] LABS: Anion Gap 8 mmol/L (10-20); BUN (Urea Nitrogen) 19 mg/dL (8.4-25.7); Calc. Creatinine Clearance 54 mL/min (70-130); Calcium 8.7 mg/dL (7.8-10.44); Carbon Dioxide 27 mmol/L (23-31); Chloride 102 mmol/L (98-107); Estimated GFR-MDRD 76; Glucose 87 mg/dL (83-110); Potassium 4.1 mmol/L (3.5-5.1); Sodium 133 mmol/L (136-145)
[2017-07-07] MEDS ORDERED: Ferrous Sulfate 325 MG TAB PO SCH (08:00)
[2017-07-07] MEDS: Losartan 25 MG TAB PO SCH (08:55)
[2017-07-07] MEDS: Timolol 0.5% Ophth Soln 5 ml Bottle EA EYE SCH (08:55)
[2017-07-07] MEDS: Tamsulosin HCl 0.4 MG CAP PO SCH (08:55)
--- NOTE | 2017-07-07 09:46 | ADD-DIS ---
This is an addendum to discharge summary dictated on 07/05/2017. INTERVAL HISTORY: The patient did not leave yesterday. He has been admitted inpatient from a [facility] facility and thus needs prior authorization from his insurance prior to being able to be tr ansferred. Discharge was held overnight. The patient remained stable, repeat hemoglobin today was u p to 8.8. He is feeling great and is stable for discharge. He was discharged to [facility] in [place] for continued rehabilitation. Medicines, etc., have not changed. Greater than 30 minutes were spent in re-coordinating discharge.
[2017-07-07 11:35] VITALS: BP 148/75; TEMP 98.6
[2017-07-07] MEDS: Dextrose 5 %-0.45 % NaCl 1,000 ML IV SCH (11:40)
--- NOTE | 2017-07-07 14:51 | ADD-DIS ---
ADDENDUM This is an addendum to the initial discharge summary dated 07/05/2017, and subsequent discharge summa ry 07/06/2017. Patient again did not discharge overnight secondary to lack of preauthorization from insurance compan y. We did find out last evening, however, the skilled nurse facility had been calling the wrong offi ce for preauthorization. Today, the correct office was called and preauthorization was obtained very rapidly. We will charshantel g the avoidable days to the skilled nurse facility. The patient was seen and examined. He continues to improve. Labs showed his hemoglobin up to 9.0 an d he has been resumed on his b.i.d. iron as ordered. For remainder of his discharge summary, please see the previous dictated notes.
== END 2017-07-07 12:56 | DRG 300 ==
LOC: ERS 15:56 → T4-A 18:45
PROVIDERS: ADMIT Internal Medicine; ATTEND Internal Medicine
DX: I73.9 Peripheral vascular disease, unspecified (principal); K92.2 Gastrointestinal hemorrhage, unspecified; I48.0 Paroxysmal atrial fibrillation; E87.1 Hypo-osmolality and hyponatremia; I48.2 Chronic atrial fibrillation; Z66 Do not resuscitate; I10 Essential (primary) hypertension; Z86.73 Personal history of transient ischemic attack (TIA), and cerebral infarction without residual deficits; Z87.891 Personal history of nicotine dependence; D50.9 Iron deficiency anemia, unspecified; I25.10 Atherosclerotic heart disease of native coronary artery without angina pectoris; Z79.01 Long term (current) use of anticoagulants; K57.30 Diverticulosis of large intestine without perforation or abscess without bleeding; K63.5 Polyp of colon; K44.9 Diaphragmatic hernia without obstruction or gangrene; L97.519 Non-pressure chronic ulcer of other part of right foot with unspecified severity
CPT/HCPCS: 36415; 36416; 36430; 80048; 80053; 80076; 82274; 82607; 82728; 82746; 83540; 83550; 84466; 85025; 85610; 85730; 86850; 86900; 86901; 93005; C9113; J0360; P9016

== ENCOUNTER 2017-07-29 12:22 | Inpatient (IN) | payer MEDICARE ==
[2017-07-29] MEDS ORDERED: Bupivacaine/Epinephrine 0.25% 30 ML VIAL ONE (12:45)
[2017-07-29] MEDS ORDERED: Fentanyl 100 MCG/2 ML VIAL ONE (13:12)
[2017-07-29 13:14] LABS: #Eosinphils 0.1 thou/uL (0.0-0.7); #Lymphocytes 1.7 thou/uL (1.20-3.40); #Neutrophils 5.8 thou/uL (1.40-6.50); %Basophils 0.4 % (0.0-1.0); %Eosinophils 1.1 % (0.0-10.0); %Lymphocytes 19.5 % (21.0-51.0); %Monocytes 11.3 % (0.0-10.0); %Neutrophils 67.8 % (42.0-75.0); Hemoglobin 11.1 g/dL (14.0-18.0); Mean Corpuscular HGB CONC 32.2 g/dL (32.0-36.0); Mean Corpuscular Hemoglobin 31.3 pg (27.0-31.0); Mean Platelet Volume 7.2 fL (7.4-10.4); Platelet Count 151 thou/uL (130-400); RBC Distribution Width 14.1 % (11.5-14.5); Red Blood Cell (RBC) Count 3.55 mill/uL (4.70-6.10); White Blood Cell (WBC) Count 8.6 thou/uL (4.8-10.8)
[2017-07-29] MEDS ORDERED: CEFAZOLIN/Water 2 GM/20 ML SYRINGE ONE ×2 (13:14→13:20)
[2017-07-29 13:24] LABS: Anion Gap 15 mmol/L (10-20); BUN (Urea Nitrogen) 17 mg/dL (8.4-25.7); Calc. Creatinine Clearance 0 mL/min (70-130); Calcium 8.8 mg/dL (7.8-10.44); Carbon Dioxide 26 mmol/L (23-31); Chloride 92 mmol/L (98-107); Estimated GFR-MDRD Greater than 90; Glucose 114 mg/dL (83-110); Potassium 3.4 mmol/L (3.5-5.1); Sodium 130 mmol/L (136-145)
--- NOTE | 2017-07-29 14:42 | OP ---
PREOPERATIVE DIAGNOSIS: Gangrene toes of 1, 3, 4 right foot. PROCEDURE: Amputation of toes 1, 3, 4 right foot. PROCEDURE IN DETAIL: After prepping and draping and general anesthesia had been obtained, individual ly circumferential incisions were made around each toe, excising the necrotic portion down to the bas e of the toes. After this had been done, bone was rongeured down to the MP joint of each toe. Necro tic tissue was debrided and the area thoroughly irrigated and a wound VAC was then placed. The patie nt tolerated the procedure well. Estimated blood loss was 20 mL.
[2017-07-29] MEDS ORDERED: Glycopyrrolate 0.2 MG/ML 5 ML SYRINGE ONE (14:58)
[2017-07-29] MEDS ORDERED: Dexamethasone 20 MG/5 ML VIAL ONE (14:58)
[2017-07-29] MEDS ORDERED: PROPOFOL 200 MG/20 ML VIAL ONE (14:58)
[2017-07-29] MEDS ORDERED: Lidocaine 1% PF 5 ML VIAL ONE (14:58)
[2017-07-29] MEDS ORDERED: Ondansetron HCl/PF 4 MG/2 ML Vial IVP PRN ×2 (15:16→15:54)
[2017-07-29] MEDS ORDERED: Bisacodyl 10 MG SUPP PR PRN (15:54)
[2017-07-29] MEDS ORDERED: Bisacodyl 5 MG TAB PO PRN (15:54)
[2017-07-29 16:15] VITALS: BMI 20.9
[2017-07-29] MEDS ORDERED: hydrALAZINE 20 MG/ML VIAL SLOW IVP PRN (18:36)
[2017-07-29] MEDS: Acetaminophen 325 MG TAB PO PRN (19:29)
[2017-07-29] MEDS: Famotidine 20 MG TAB PO SCH (20:24)
[2017-07-29] MEDS: Docusate 100 MG CAP PO SCH (20:24)
[2017-07-29] MEDS: Losartan 25 MG TAB PO SCH (20:24)
[2017-07-29] MEDS: Latanoprost 0.005% Ophth Soln 2.5 ml Bottle EA EYE SCH (20:29)
[2017-07-29] MEDS: Timolol 0.5% Ophth Soln 5 ml Bottle EA EYE SCH (20:31)
[2017-07-30] MEDS: Acetaminophen 325 MG TAB PO PRN ×2 (06:20→20:38)
[2017-07-30] MEDS: Furosemide 40 MG TAB PO SCH (06:31)
[2017-07-30] MEDS ORDERED: Losartan 25 MG TAB PO SCH (09:00)
[2017-07-30] MEDS: Ferrous Sulfate 325 MG TAB PO SCH (09:14)
[2017-07-30] MEDS: Docusate 100 MG CAP PO SCH ×2 (09:14→20:39)
[2017-07-30] MEDS: Tamsulosin HCl 0.4 MG CAP PO SCH (09:15)
[2017-07-30] MEDS: Potassium Chloride 10 MEQ TAB PO SCH (09:15)
[2017-07-30] MEDS: Famotidine 20 MG TAB PO SCH ×2 (09:15→20:38)
[2017-07-30] MEDS: Losartan 25 MG TAB PO SCH ×2 (09:15→20:38)
[2017-07-30] MEDS: Timolol 0.5% Ophth Soln 5 ml Bottle EA EYE SCH ×2 (09:16→20:42)
[2017-07-30] MEDS: Enoxaparin Sodium 40 MG/0.4 ML SYRINGE SC SCH (09:17)
[2017-07-30] MEDS: Latanoprost 0.005% Ophth Soln 2.5 ml Bottle EA EYE SCH (20:42)
[2017-07-31] MEDS: Furosemide 40 MG TAB PO SCH (06:33)
[2017-07-31] MEDS: Enoxaparin Sodium 40 MG/0.4 ML SYRINGE SC SCH (09:49)
[2017-07-31] MEDS: Losartan 25 MG TAB PO SCH (09:49)
[2017-07-31] MEDS: Acetaminophen 325 MG TAB PO PRN (09:51)
[2017-07-31] MEDS: Timolol 0.5% Ophth Soln 5 ml Bottle EA EYE SCH (09:51)
[2017-07-31] MEDS: Famotidine 20 MG TAB PO SCH (09:51)
[2017-07-31] MEDS: Tamsulosin HCl 0.4 MG CAP PO SCH (09:51)
[2017-07-31] MEDS: Docusate 100 MG CAP PO SCH (09:51)
[2017-07-31] MEDS: Potassium Chloride 10 MEQ TAB PO SCH (09:51)
[2017-07-31] MEDS: Ferrous Sulfate 325 MG TAB PO SCH (09:51)
[2017-07-31 15:28] VITALS: BP 140/62; TEMP 97.7
--- NOTE | 2017-08-01 02:58 | DIS ---
This is an 87-year-old gentleman admitted for multiple toe amputations, which were performed without difficulty. He had a wound VAC placed and he remained in the hospital until an outpatient wound VAC was available. His hospital course was remarkable only for some mild hypertension. He will be disch arged to the group home with his wound VAC and follow up with me in a few weeks.
== END 2017-07-31 18:49 | DRG 257 ==
LOC: SDC 12:22 → SURG A 14:26
PROVIDERS: ADMIT Thoracic Surgery (Cardiothoracic Vascular Surgery); ATTEND Thoracic Surgery (Cardiothoracic Vascular Surgery)
PROC: 0Y6P0Z0 Detachment at Right 1st Toe, Complete, Open Approach (ICD-10-PCS; principal; 2017-07-29)
PROC: 0Y6V0Z0 Detachment at Right 4th Toe, Complete, Open Approach (ICD-10-PCS; 2017-07-29)
PROC: 0Y6T0Z0 Detachment at Right 3rd Toe, Complete, Open Approach (ICD-10-PCS; 2017-07-29)
DX: I70.261 Atherosclerosis of native arteries of extremities with gangrene, right leg (principal); I10 Essential (primary) hypertension; I48.91 Unspecified atrial fibrillation; Z79.01 Long term (current) use of anticoagulants; Z79.82 Long term (current) use of aspirin; Z79.899 Other long term (current) drug therapy
CPT/HCPCS: 36415; 80048; 85025; 94640; G8978-GP-CL; G8979-GP-CI; J0360; J1100; J1650; J2001; J2704; J3010; J7620